=== PATIENT | male | born 1970 | race Caucasian/White ===

== ENCOUNTER 2019-11-09 11:54 | Inpatient (IN) | payer OTHER ==
--- NOTE | 2019-11-09 14:29 | BHS.RME ---
Substance Use & Tx History - Substance Use History Opiates (Heroin) Substance amount: 10 bags Frequency of use: Daily Substance route: Injection (ex: intravenous or skin popping) Date of Last Use: 11/08/19 Alcohol Substance amount: 2pints od bacardi/2 of 40 ozs of beer Frequency of use: Daily Substance route: Oral Date of Last Use: 11/07/19 - Last Treatment Date of last treatment: 2014 Where was last treatment: Detox ([facility]) Physical/Psych/Mental Status - Behavior General Behavior: Increased activity (restlessness, agitation) Eye Contact: Normal - Cooperativeness Cooperativeness: Cooperative - Thinking Thought Processes: Logical Thought content: Future oriented - Physical Health Problems Is patient presently having any pain?: No Does patient presently have any injuries (include location): Yes (head and laceration on eyebrow,seen in [facility]) Does patient currently have a fever: No COWS - Scale Resting Pulse: 0= [place] 80 or Below (this 49 years old male with heroin dependence, use to drink, had seizure an d syncope seen at [facility],did not see discharge paper, [facility] [place] with stitches need detox drink occasionally) Sweatin= Chills/Flushing Restless Observation: 1= Difficult to Sit Still Pupil Size: 1= Pupils >than Normal Bone or Joint Aches: 2= Severe Diffuse Aches Runny Nose/ Eye Tearin= Nasal Congestion GI Upset > 30mins: 2= Nausea/Diarrhea Tremor Observation: 2= Slight Tremor Visible Yawning Observation: 1= 1-2x During Session Anxiety or Irritability: 2=Irritable/Anxious Goose Flesh Skin: 0=Smooth Skin COWS Score: 13
[2019-11-09 17:13] VITALS: BMI 30.9
--- NOTE | 2019-11-09 17:36 | HP ---
COWS - Scale Resting Pulse: 0= [place] 80 or Below (this 49 years old male with heroin dependence, use to drink, had seizure an d syncope seen at [facility],did not see discharge paper, [facility] need detox drink occasionally) Sweatin= Chills/Flushing Restless Observation: 1= Difficult to Sit Still Pupil Size: 1= Pupils >than Normal Bone or Joint Aches: 2= Severe Diffuse Aches Runny Nose/ Eye Tearin= Nasal Congestion GI Upset > 30mins: 2= Nausea/Diarrhea Tremor Observation: 2= Slight Tremor Visible Yawning Observation: 1= 1-2x During Session Anxiety or Irritability: 2=Irritable/Anxious Goose Flesh Skin: 0=Smooth Skin COWS Score: 13 CIWA Score - Admission Criteria OASAS Guidelines: Admission for Medically Managed Detox: Requires at least one of the followin. CIWA greater than 12 2. Seizures within the past 24 hours 3. Delirium tremens within the past 24 hours 4. Hallucinations within the past 24 hours 5. Acute intervention needed for co occurring medical disorder 6. Acute intervention needed for co occurring psychiatric disorder 7. Severe withdrawal that cannot be handled at a lower level of care (continued vomiting, continued diarrhea, abnormal vital signs) requiring intravenous medication and/or fluids 8. Admitting History and Physical - Admission Chief Complaint: i need help to stop using heroin History of Present Illness: this 49 years old male with heroin dependence seeking detox,seen in [facility] last night ,o discharge paper,had head injury,laceration of left eyebrow History Source: Patient Limitations to Obtaining History: No Limitations - Past Medical History [employer]: Yes: Seizure, Syncope Psych: Yes: Addictions Additional Past Medical History: abrasion both legs - Past Surgical History Past Surgical History: Yes: None - Smoking History Smoking history: Current every day smoker Have you smoked in the past 12 months: Yes Aproximately how many cigarettes per day: 10 - Alcohol/Substance Use Hx Alcohol Use: No History of Substance Use: reports: Heroin - Social History Usual Living Arrangement: Yes: With Significant Other Occupation: unemployed History of Recent Travel: No Admission ROS BHS - HPI Chief Complaint: i need help to stop using heroin History of Present Illness: this 49 years old male with heroin dependence,alcohol abused,seeking help to stop using, head injury,seizure,syncope last night seen in [place] laceration of left eyebrow last detox 2014 not sure about facility longest sobriety 5 years nicotine dependence plan for out patient program after detox - Ebola screening Have you traveled outside of the country in the last 21 days: No Have you had contact with anyone from an Ebola affected area: No Have you been sick,other than usual withdrawal symptoms: No Do you have a fever: No - Review of Systems Constitutional: Chills, Night Sweats, Changes in sleep EENT: reports: Tearing, Nose Congestion, Other (laceration of left eyebrow with stitches) Respiratory: reports: No Symptoms reported Cardiac: reports: No Symptoms Reported GI: reports: Nausea, Poor Appetite, Abdominal cramping : reports: No Symptoms Reported Musculoskeletal: reports: Back Pain, Joint Pain, Muscle Pain Integumentary: reports: Dryness, Other (laceration of left eybrow with stitches) Neuro: reports: Headache Endocrine: reports: No Symptoms Reported Hematology: reports: No Symptoms Reported Psychiatric: reports: No Sypmtoms Reported Other Systems: Reviewed and Negative Patient History - Patient Medical History Hx Anemia: No Hx Asthma: No Hx Chronic Obstructive Pulmonary Disease (COPD): No Hx Cancer: No Hx Cardiac Disorders: No Hx Congestive Heart Failure: No Hx Hypertension: No Hx Hypercholesterolemia: No Hx Pacemaker: No HX Cerebrovascular Accident: No Hx Seizures: Yes (last 01/07/2020) Hx Dementia: No Hx Diabetes: No Hx Gastrointestinal Disorders: No Hx Liver Disease: No Hx Genitourinary Disorders: No Hx Sexually Transmitted Disorders: No Hx Renal Disease (ESRD): No Hx Thyroid Disease: No Hx Human Immunodeficiency Virus (HIV): No (2009 negative) Hx Hepatitis C: No Hx Depression: No Hx Suicide Attempt: No Hx Bipolar Disorder: No Hx Schizophrenia: No Other Medical History: no suicidal,no homicidal - Patient Surgical History Past Surgical History: No - PPD History Previous Implant?: Yes Documented Results: Negative w/o proof Implanted On Prior [facility] Admission?: No PPD to be Administered?: Yes - Smoking Cessation Smoking history: Current every day smoker Have you smoked in the past 12 months: Yes Aproximately how many cigarettes per day: 10 Cigars Per Day: 0 Hx Chewing Tobacco Use: No Initiated information on smoking cessation: Yes 'Breaking Loose' booklet given: 11/09/19 - Substance & Tx. History Hx Alcohol Use: No Hx Substance Use: Yes Substance Use Type: Heroin Hx Substance Use Treatment: Yes (2015 unknown facility) - Substances abused Heroin Substance route: Injection Frequency: Daily Amount used: 10 bags Age of first use: 35 Date of last use: 11/08/19 Admission Physical Exam [facility] - Vital Signs Vital Signs: Vital Signs - 24 hr 11/09/19 17:10 Temperature 97 F L Pulse Rate 58 L Respiratory 16 Rate Blood Pressure 131/77 - Physical General Appearance: Yes: Moderate Distress, Tremorous, Irritable, Sweating, Anxious HEENTM: Yes: Normal ENT Inspection, Normocephalic, ARACELY, Pharynx Normal, Other ( laceration of eyebrow with stitches) Respiratory: Yes: Lungs Clear, Normal Breath Sounds, No Respiratory Distress Neck: Yes: Within Normal Limits, Supple, Trachea in good position Breast: Yes: Within Normal Limits Cardiology: Yes: Within Normal Limits, Regular Rhythm, Regular Rate, S1, S2 Abdominal: Yes: Normal Bowel Sounds, Non Tender, Soft Genitourinary: Yes: Within Normal Limits Back: Yes: Normal Inspection Musculoskeletal: Yes: full range of Motion, Back pain, Muscle Pain Extremities: Yes: Tremors Neurological: Yes: performance improvement director II-XII NML intact, Fully Oriented, Alert, Motor Strength 5/5 Integumentary: Yes: Dry Lymphatic: Yes: Within Normal Limits - Diagnostic (1) Opioid dependence with withdrawal Current Visit: Yes Status: Acute (2) Seizure Current Visit: Yes Status: Acute (3) Syncope Current Visit: Yes Status: Acute (4) History of head injury Current Visit: Yes Status: Acute (5) Laceration of eyebrow, left Current Visit: Yes Status: Acute (6) IVDU (intravenous drug user) Current Visit: Yes Status: Acute (7) Abrasion of anterior left lower leg Current Visit: Yes Status: Acute (8) Abrasion of anterior right lower leg Current Visit: Yes Status: Acute Cleared for Admission [facility] - Detox or Rehab [facility] Level of Care: Medically Managed Detox Regimen/Protocol: Methadone Breathalyzer - Breathalyzer Breathalyzer: 0 Urine Drug Screen - Test Device Lot number: [id number] Expiration date: 08/19/21 - Control Is test valid?: Yes - Results Drug screen NEGATIVE: No Urine drug screen results: FEN-Fentanyl, MOP-Opiates Inpatient Rehab Admission - Rehab Decision to Admit Inpatient rehab admission?: No
[2019-11-09] MEDS ORDERED: NICOTINE POLACRILEX 2 MG GUM BUC PRN (17:49)
[2019-11-09] MEDS ORDERED: MENTHOL/PHENOL 1 EACH UD MM PRN (17:49)
[2019-11-09] MEDS ORDERED: MAG HYDROX/AL HYDROX/SIMETH 30 ML UNIT-DOSE CUP PO PRN (17:49)
[2019-11-09] MEDS ORDERED: MAGNESIUM HYDROX 2400MG/30ML ORAL SUSPENSION 30 ML CUP PO PRN (17:49)
[2019-11-09] MEDS ORDERED: ACETAMINOPHEN 325 MG TABLET (FP) PO PRN ×2 (17:49)
[2019-11-09] MEDS ORDERED: BISMUTH SUBSALICYLATE 524 MG/30 ML UD PO PRN (17:49)
[2019-11-09] MEDS ORDERED: hydrOXYzine PAMOATE 25 MG CAPSULE (FP) PO PRN (17:49)
[2019-11-09] MEDS ORDERED: MAGNESIUM CITRATE 300 ML BOTTLE PO PRN (17:49)
[2019-11-09] MEDS ORDERED: cloNIDine HCL 0.1 MG TABLET PO PRN (17:49)
[2019-11-09] MEDS ORDERED: METHADONE HCL 10 MG TABLET (FOR DETOX USE ONLY) PO ONE (17:49)
--- NOTE | 2019-11-09 18:42 | PN ---
BHS Progress Note Note: addendum patient has perforated appendicitis at age of [age] years old,with midline abdominal scar,
[2019-11-09] MEDS: diazePAM 5 MG TABLET PO PRN (19:25)
[2019-11-09] MEDS: NICOTINE 21 MG/24 HOURS TOPICAL PATCH TD SCH (19:58)
[2019-11-09] MEDS: THIAMINE HCL 100 MG TABLET (FP) PO SCH (22:34)
[2019-11-09] MEDS: BACITRACIN 0.9 GM PACKET TP SCH (22:34)
[2019-11-10] MEDS ORDERED: METHADONE HCL 10 MG TABLET (FOR DETOX USE ONLY) ONE (09:58)
[2019-11-10] MEDS ORDERED: METHADONE HCL 5 MG TABLET (FOR DETOX USE ONLY) ONE (09:58)
[2019-11-10] MEDS ORDERED: METHADONE (DETOX) 20 MG, METHADONE (DETOX) 5 MG PO ONE (10:00)
[2019-11-10] MEDS: BACITRACIN 0.9 GM PACKET TP SCH ×2 (11:03→22:33)
[2019-11-10] MEDS: PRENATAL VITAMINS W/ FOLIC ACID TABLET (FP) PO SCH (11:03)
[2019-11-10] MEDS: NICOTINE 21 MG/24 HOURS TOPICAL PATCH TD SCH (11:11)
[2019-11-10 11:46] LABS: ALBUMIN 3.6 g/dl (3.4-5.0); BILIRUBIN,TOTAL 0.6 mg/dL (0.2-1); BLOOD UREA NITROGEN 6.8 mg/dL (7-18); CALCIUM 8.9 mg/dL (8.5-10.1); CREATININE 0.7 mg/dL (0.55-1.3); POTASSIUM 4.1 mmol/L (3.5-5.1); TOT PROT 7.7 g/dl (6.4-8.2)
[2019-11-10 11:51] LABS: HEMATOCRIT 40.6 % (35.4-49); HEMOGLOBIN 13.5 GM/dL (11.7-16.9); MCH 29.8 pg (25.7-33.7); MCHC 33.4 g/dl (32.0-35.9); MEAN CELL VOLUME 89.4 fl (80-96); MEAN PLT VOLUME 11.2 fl (7.5-11.1); PLATELET COUNT 240 K/MM3 (134-434); RBC 4.54 M/mm3 (4.00-5.60); RDW 16.2 % (11.9-15.9); WHITE BLOOD COUNT 12.3 K/mm3 (4.0-10.0)
--- NOTE | 2019-11-10 14:18 | PN ---
BHS COWS - Scale Resting Pulse: 0= [place] 80 or Below Sweatin= Chills/Flushing Restless Observation: 1= Difficult to Sit Still Pupil Size: 0= Normal to Room Light Bone or Joint Aches: 2= Severe Diffuse Aches Runny Nose/ Eye Tearin= None GI Upset > 30mins: 2= Nausea/Diarrhea Tremor Observation of Outstretched Hands: 2= Slight Tremor Visible Yawning Observation: 0= None Anxiety or Irritability: 2=Irritable/Anxious Goose Flesh Skin: 0=Smooth Skin COWS Score: 10 BHS Progress Note (SOAP) Subjective: Patient admitted for opiod withdrawal sx. Received in bed, mild shakes visible, with chills, anxious and restless. Objective: 11/10/19 14:19 Vital Signs Temperature 98.8 F 11/10/19 12:24 Pulse Rate 67 11/10/19 12:24 Respiratory Rate 18 11/10/19 12:24 Blood Pressure 135/67 11/10/19 12:24 O2 Sat by Pulse Oximetry (%) Laboratory Tests 11/10/19 11/10/19 07:25 07:25 WBC 12.3 H RBC 4.54 Hgb 13.5 Hct 40.6 MCV 89.4 MCH 29.8 MCHC 33.4 RDW 16.2 H Plt Count 240 MPV 11.2 H Sodium 139 Potassium 4.1 Chloride 105 Carbon Dioxide 28 Anion Gap 7 L BUN 6.8 L Creatinine 0.7 Est GFR (CKD-EPI)AfAm 128.43 Est GFR (CKD-EPI)NonAf 110.81 Random Glucose 110 H Calcium 8.9 Total Bilirubin 0.6 AST 30 ALT 19 Alkaline Phosphatase 75 Total Protein 7.7 Albumin 3.6 PE alert and oriented x 3 skin warm, moist +perrla, eoms intact bl gi nt, nd ext full rom, mild tremors visible anxious/restless Assessment: 11/10/19 14:23 Opiod withdrawal sx elevated wbc Plan: Continue detox encourage oral fluids repeat cbc in am
[2019-11-10] MEDS: METHOCARBAMOL 500 MG TABLET PO PRN (17:09)
[2019-11-10] MEDS: THIAMINE HCL 100 MG TABLET (FP) PO SCH (22:33)
[2019-11-11] MEDS: diazePAM 5 MG TABLET PO PRN ×3 (08:44→20:07)
[2019-11-11] MEDS ORDERED: METHADONE HCL 10 MG TABLET (FOR DETOX USE ONLY) PO ONE (10:00)
--- NOTE | 2019-11-11 10:30 | EKG ---
Test Reason : Blood Pressure : / mmHG Vent. Rate : 055 BPM Atrial Rate : 055 BPM P-R Int : 164 ms QRS Dur : 096 ms QT Int : 480 ms P-R-T Axes : 086 073 062 degrees QTc Int : 459 ms SINUS BRADYCARDIA OTHERWISE NORMAL ECG NO PREVIOUS ECGS AVAILABLE Confirmed by Kiera Armijo ([id number]) on 11/11/2019 10:29:41 AM Referred By: MIRA BROWN Confirmed By:Kiera Armijo
[2019-11-11] MEDS: BACITRACIN 0.9 GM PACKET TP SCH ×2 (10:41→22:03)
[2019-11-11] MEDS: NICOTINE 21 MG/24 HOURS TOPICAL PATCH TD SCH (10:41)
[2019-11-11] MEDS: PRENATAL VITAMINS W/ FOLIC ACID TABLET (FP) PO SCH (10:41)
[2019-11-11 10:59] LABS: BASO % 0.6 % (0-2.0); EOS % 0.8 % (0-4.5); HEMATOCRIT 42.7 % (35.4-49); MCH 29.1 pg (25.7-33.7); MCHC 32.7 g/dl (32.0-35.9); MEAN CELL VOLUME 88.9 fl (80-96); MEAN PLT VOLUME 11.6 fl (7.5-11.1); MONO % 15.1 % (3.8-10.2); NEUT % 52.5 % (42.8-82.8); PLATELET COUNT 249 K/MM3 (134-434); RBC 4.81 M/mm3 (4.00-5.60); RDW 16.3 % (11.9-15.9); WHITE BLOOD COUNT 13.6 K/mm3 (4.0-10.0)
[2019-11-11 13:35] LABS: PLATELET ESTIMATE NORMAL
[2019-11-11] MEDS: METHOCARBAMOL 500 MG TABLET PO PRN ×2 (13:51→20:07)
--- NOTE | 2019-11-11 15:07 | PN ---
BHS COWS - Scale Resting Pulse: 0= [place] 80 or Below Sweatin= No chills or Flushing Restless Observation: 1= Difficult to Sit Still Pupil Size: 1= Pupils >than Normal Bone or Joint Aches: 2= Severe Diffuse Aches Runny Nose/ Eye Tearin= Runny Nose/Eyes GI Upset > 30mins: 1= Stomach Cramp Tremor Observation of Outstretched Hands: 2= Slight Tremor Visible Yawning Observation: 1= 1-2x During Session Anxiety or Irritability: 2=Irritable/Anxious Goose Flesh Skin: 0=Smooth Skin COWS Score: 12 S Progress Note (SOAP) Subjective: alert,irritable,anxious,interrupted sleep,pain in the body,and back erythema over the site of track ady left eyebrow with stitches Objective: 11/11/19 15:05 Vital Signs Temperature 98.1 F 11/11/19 14:39 Pulse Rate 56 L 11/11/19 14:39 Respiratory Rate 20 11/11/19 14:39 Blood Pressure 123/75 11/11/19 14:39 O2 Sat by Pulse Oximetry (%) Laboratory Results - last 24 hr 11/11/19 07:30 WBC 13.6 H RBC 4.81 Hgb 14.0 Hct 42.7 MCV 88.9 MCH 29.1 MCHC 32.7 RDW 16.3 H Plt Count 249 MPV 11.6 H Absolute Neuts (auto) 7.1 Neutrophils % 52.5 Lymphocytes % 31.0 Monocytes % 15.1 H Eosinophils % 0.8 Basophils % 0.6 Nucleated RBC % 0 Platelet Estimate Normal cellulitis Assessment: 11/11/19 15:06 withdrawal symptom Plan: continue detox methadone regimen,keflex 500 mgs po q 6hrs for 7 days for cellulitis
[2019-11-11] MEDS: IBUPROFEN 400 MG TABLET (FP) PO PRN (18:02)
[2019-11-11] MEDS: CEPHALEXIN MONOHYDRATE 500 MG CAPSULE (UD) PO SCH ×2 (18:03→23:02)
[2019-11-11] MEDS: THIAMINE HCL 100 MG TABLET (FP) PO SCH (22:03)
[2019-11-11] MEDS: MELATONIN 5 MG TABLETS PO PRN (22:03)
[2019-11-12] MEDS: diazePAM 5 MG TABLET PO PRN ×4 (02:58→22:15)
[2019-11-12] MEDS: METHOCARBAMOL 500 MG TABLET PO PRN (02:58)
[2019-11-12] MEDS: CEPHALEXIN MONOHYDRATE 500 MG CAPSULE (UD) PO SCH ×4 (05:40→23:59)
[2019-11-12] MEDS ORDERED: METHADONE HCL 10 MG TABLET (FOR DETOX USE ONLY) ONE (09:08)
[2019-11-12] MEDS ORDERED: METHADONE HCL 5 MG TABLET (FOR DETOX USE ONLY) ONE (09:08)
[2019-11-12] MEDS ORDERED: cloNIDine HCL 0.1 MG TABLET PO PRN (09:16)
--- NOTE | 2019-11-12 09:19 | PN ---
BHS COWS - Scale Resting Pulse: 1= [place] 81-100 Sweatin= Chills/Flushing Restless Observation: 3= Extraneous Movement Pupil Size: 1= Pupils >than Normal Bone or Joint Aches: 1= Mild Discomfort Runny Nose/ Eye Tearin= Nasal Congestion GI Upset > 30mins: 2= Nausea/Diarrhea Tremor Observation of Outstretched Hands: 1= Tremor [place], Not Seen Yawning Observation: 1= 1-2x During Session Anxiety or Irritability: 2=Irritable/Anxious Goose Flesh Skin: 0=Smooth Skin COWS Score: 14 S Progress Note (SOAP) Subjective: pt states he feels like he is in withdrawal, the detox meth dose is not controlling Sx. O: Vital Signs - 24 hr 11/11/19 11/11/19 11/12/19 14:39 20:12 00:09 Temperature 98.1 F 97.2 F L Pulse Rate 56 L 59 L Respiratory 20 18 18 Rate Blood Pressure 123/75 132/92 11/12/19 11/12/19 11/12/19 03:38 05:42 06:40 Temperature 97.7 F Pulse Rate 60 Respiratory 18 18 18 Rate Blood Pressure 126/99 Laboratory Tests 11/10/19 11/10/19 11/10/19 07:25 07:25 07:25 WBC 12.3 H RBC 4.54 Hgb 13.5 Hct 40.6 MCV 89.4 MCH 29.8 MCHC 33.4 RDW 16.2 H Plt Count 240 MPV 11.2 H Absolute Neuts (auto) Neutrophils % Lymphocytes % Monocytes % Eosinophils % Basophils % Nucleated RBC % Platelet Estimate Sodium 139 Potassium 4.1 Chloride 105 Carbon Dioxide 28 Anion Gap 7 L BUN 6.8 L Creatinine 0.7 Est GFR (CKD-EPI)AfAm 128.43 Est GFR (CKD-EPI)NonAf 110.81 Random Glucose 110 H Calcium 8.9 Total Bilirubin 0.6 AST 30 ALT 19 Alkaline Phosphatase 75 Total Protein 7.7 Albumin 3.6 RPR Titer Nonreactive 11/11/19 07:30 WBC 13.6 H RBC 4.81 Hgb 14.0 Hct 42.7 MCV 88.9 MCH 29.1 MCHC 32.7 RDW 16.3 H Plt Count 249 MPV 11.6 H Absolute Neuts (auto) 7.1 Neutrophils % 52.5 Lymphocytes % 31.0 Monocytes % 15.1 H Eosinophils % 0.8 Basophils % 0.6 Nucleated RBC % 0 Platelet Estimate Normal Sodium Potassium Chloride Carbon Dioxide Anion Gap BUN Creatinine Est GFR (CKD-EPI)AfAm Est GFR (CKD-EPI)NonAf Random Glucose Calcium Total Bilirubin AST ALT Alkaline Phosphatase Total Protein Albumin RPR Titer a/p: OUD- continue detox protocol, d/w pt the prn meds available: clonidine/ vistaril/valium for Sx control d/w pt at length re MAT- suboxone, subutex/methadone
[2019-11-12] MEDS ORDERED: METHADONE (DETOX) 10 MG, METHADONE (DETOX) 5 MG PO ONE (10:00)
[2019-11-12] MEDS: NICOTINE 21 MG/24 HOURS TOPICAL PATCH TD SCH (10:29)
[2019-11-12] MEDS: PRENATAL VITAMINS W/ FOLIC ACID TABLET (FP) PO SCH (10:29)
[2019-11-12] MEDS: BACITRACIN 0.9 GM PACKET TP SCH ×2 (10:39→22:13)
[2019-11-12] MEDS: IBUPROFEN 400 MG TABLET (FP) PO PRN (17:44)
[2019-11-12] MEDS: MELATONIN 5 MG TABLETS PO PRN (22:14)
[2019-11-12] MEDS: THIAMINE HCL 100 MG TABLET (FP) PO SCH (22:14)
[2019-11-13] MEDS: hydrOXYzine PAMOATE 25 MG CAPSULE (FP) PO PRN ×3 (01:21→22:38)
[2019-11-13] MEDS: CEPHALEXIN MONOHYDRATE 500 MG CAPSULE (UD) PO SCH ×3 (05:58→18:31)
[2019-11-13] MEDS: diazePAM 5 MG TABLET PO PRN (06:00)
[2019-11-13] MEDS ORDERED: METHADONE HCL 10 MG TABLET (FOR DETOX USE ONLY) PO ONE (10:00)
[2019-11-13] MEDS: PRENATAL VITAMINS W/ FOLIC ACID TABLET (FP) PO SCH (10:51)
[2019-11-13] MEDS: NICOTINE 21 MG/24 HOURS TOPICAL PATCH TD SCH (10:51)
[2019-11-13] MEDS: BACITRACIN 0.9 GM PACKET TP SCH ×2 (10:53→23:06)
--- NOTE | 2019-11-13 15:12 | PN ---
BHS COWS - Scale Resting Pulse: 0= [place] 80 or Below Sweatin= Chills/Flushing Restless Observation: 1= Difficult to Sit Still Pupil Size: 1= Pupils >than Normal Bone or Joint Aches: 1= Mild Discomfort Runny Nose/ Eye Tearin= Nasal Congestion GI Upset > 30mins: 2= Nausea/Diarrhea Tremor Observation of Outstretched Hands: 0= None Yawning Observation: 0= None Anxiety or Irritability: 1=Feels Anxious/Irritable Goose Flesh Skin: 0=Smooth Skin COWS Score: 8 BHS Progress Note (SOAP) Subjective: interrupted sleep, sweats, diarrhea Objective: 11/13/19 15:11 Laboratory Tests 11/10/19 11/10/19 11/10/19 07:25 07:25 07:25 WBC 12.3 H RBC 4.54 Hgb 13.5 Hct 40.6 MCV 89.4 MCH 29.8 MCHC 33.4 RDW 16.2 H Plt Count 240 MPV 11.2 H Absolute Neuts (auto) Neutrophils % Lymphocytes % Monocytes % Eosinophils % Basophils % Nucleated RBC % Platelet Estimate Sodium 139 Potassium 4.1 Chloride 105 Carbon Dioxide 28 Anion Gap 7 L BUN 6.8 L Creatinine 0.7 Est GFR (CKD-EPI)AfAm 128.43 Est GFR (CKD-EPI)NonAf 110.81 Random Glucose 110 H Calcium 8.9 Total Bilirubin 0.6 AST 30 ALT 19 Alkaline Phosphatase 75 Total Protein 7.7 Albumin 3.6 RPR Titer Nonreactive 11/11/19 07:30 WBC 13.6 H RBC 4.81 Hgb 14.0 Hct 42.7 MCV 88.9 MCH 29.1 MCHC 32.7 RDW 16.3 H Plt Count 249 MPV 11.6 H Absolute Neuts (auto) 7.1 Neutrophils % 52.5 Lymphocytes % 31.0 Monocytes % 15.1 H Eosinophils % 0.8 Basophils % 0.6 Nucleated RBC % 0 Platelet Estimate Normal Sodium Potassium Chloride Carbon Dioxide Anion Gap BUN Creatinine Est GFR (CKD-EPI)AfAm Est GFR (CKD-EPI)NonAf Random Glucose Calcium Total Bilirubin AST ALT Alkaline Phosphatase Total Protein Albumin RPR Titer Assessment: 11/13/19 15:14 withdrawal sx's elevated wbc - pt is afebrile , no cough, sob, tachycardia 11/13/19 15:16 Plan: cont. detox increase fluids peptobismol prn d/c in am
[2019-11-13] MEDS: METHOCARBAMOL 500 MG TABLET PO PRN (18:34)
[2019-11-13] MEDS: MELATONIN 5 MG TABLETS PO PRN (22:37)
[2019-11-13] MEDS: THIAMINE HCL 100 MG TABLET (FP) PO SCH (23:06)
[2019-11-14] MEDS: CEPHALEXIN MONOHYDRATE 500 MG CAPSULE (UD) PO SCH ×2 (00:50→06:41)
[2019-11-14] MEDS ORDERED: METHADONE HCL 5 MG TABLET (FOR DETOX USE ONLY) PO ONE (06:00)
[2019-11-14] MEDS: METHOCARBAMOL 500 MG TABLET PO PRN (06:54)
[2019-11-14] MEDS: NICOTINE 21 MG/24 HOURS TOPICAL PATCH TD SCH (10:47)
[2019-11-14] MEDS: BACITRACIN 0.9 GM PACKET TP SCH (10:47)
[2019-11-14] MEDS: PRENATAL VITAMINS W/ FOLIC ACID TABLET (FP) PO SCH (10:47)
[2019-11-14 10:57] VITALS: BP 122/74; PULSE 67; TEMP 97.3
--- NOTE | 2019-11-14 12:27 | DS ---
[facility] Detox Discharge Summary Admission Date: 11/09/19 Discharge Date: 11/14/19 - History Present History: Opioid Dependence Pertinent Past History: Pt completed detox protocol for opioid use. I had d/w pt long term care pharmacist Rx with MAT suboxone/methadone Vital Signs - 24 hr 11/13/19 11/13/19 11/14/19 16:26 20:58 00:31 Temperature 97.6 F 98.1 F Pulse Rate 63 76 Respiratory 18 18 18 Rate Blood Pressure 144/71 139/99 11/14/19 11/14/19 11/14/19 03:20 06:19 08:34 Temperature 97.9 F 97.3 F L Pulse Rate 54 L 67 Respiratory 18 18 18 Rate Blood Pressure 118/74 122/74 Laboratory Tests 11/10/19 11/10/19 11/10/19 07:25 07:25 07:25 WBC 12.3 H RBC 4.54 Hgb 13.5 Hct 40.6 MCV 89.4 MCH 29.8 MCHC 33.4 RDW 16.2 H Plt Count 240 MPV 11.2 H Absolute Neuts (auto) Neutrophils % Lymphocytes % Monocytes % Eosinophils % Basophils % Nucleated RBC % Platelet Estimate Sodium 139 Potassium 4.1 Chloride 105 Carbon Dioxide 28 Anion Gap 7 L BUN 6.8 L Creatinine 0.7 Est GFR (CKD-EPI)AfAm 128.43 Est GFR (CKD-EPI)NonAf 110.81 Random Glucose 110 H Calcium 8.9 Total Bilirubin 0.6 AST 30 ALT 19 Alkaline Phosphatase 75 Total Protein 7.7 Albumin 3.6 RPR Titer Nonreactive 11/11/19 07:30 WBC 13.6 H RBC 4.81 Hgb 14.0 Hct 42.7 MCV 88.9 MCH 29.1 MCHC 32.7 RDW 16.3 H Plt Count 249 MPV 11.6 H Absolute Neuts (auto) 7.1 Neutrophils % 52.5 Lymphocytes % 31.0 Monocytes % 15.1 H Eosinophils % 0.8 Basophils % 0.6 Nucleated RBC % 0 Platelet Estimate Normal Sodium Potassium Chloride Carbon Dioxide Anion Gap BUN Creatinine Est GFR (CKD-EPI)AfAm Est GFR (CKD-EPI)NonAf Random Glucose Calcium Total Bilirubin AST ALT Alkaline Phosphatase Total Protein Albumin RPR Titer - Physical Exam Results Vital Signs: Vital Signs Temperature 97.3 F L 11/14/19 08:34 Pulse Rate 67 11/14/19 08:34 Respiratory Rate 18 11/14/19 08:34 Blood Pressure 122/74 11/14/19 08:34 O2 Sat by Pulse Oximetry (%) - Treatment Hospital Course: Detox Protocol Followed, Detoxed Safely, Responded well, Discharged Condition Good - Medication Discharge Medications: Ambulatory Orders NK [No Known Home Medication] 11/09/19 - Diagnosis (1) IVDU (intravenous drug user) Status: Acute (2) Opioid dependence with withdrawal Status: Acute - AMA Did Patient Leave Against Medical Advice: No
== END 2019-11-14 09:34 | disposition home or self-care (01) | DRG 897 ==
LOC: YASAS 11:54 → Y6N 18:09
PROVIDERS: ADMIT Allergy & Immunology; ATTEND Allergy & Immunology
PROC: HZ2ZZZZ Detoxification Services for Substance Abuse Treatment (ICD-10-PCS; principal; 2019-11-09)
DX: F11.23 Opioid dependence with withdrawal (principal); F10.230 Alcohol dependence with withdrawal, uncomplicated; F17.210 Nicotine dependence, cigarettes, uncomplicated; G40.909 Epilepsy, unspecified, not intractable, without status epilepticus; D72.829 Elevated white blood cell count, unspecified
CPT/HCPCS: 36415; 80053; 85025; 85027; 86593; 93005; 93010

== ENCOUNTER 2020-07-02 16:31 | Inpatient (IN) | payer OTHER ==
--- OUTSIDE RECORDS SUMMARY | 2020-07-02 16:36 | XMS ---
:1970 [facility] Care Team Providers Name Role Phone Dinorah WOODWARD MD Unavailable Unavailable Dinorah WOODWARD MD Unavailable Unavailable Dinorah WOODWARD MD Unavailable Unavailable Dinorah WOODWARD MD Unavailable Unavailable Dinorah WOODWARD MD Unavailable Unavailable Dinorah WOODWARD MD Unavailable Unavailable Dinorah WOODWARD MD Unavailable Unavailable Dinorah WOODWARD MD Unavailable Unavailable Dinorah WOODWARD MD Unavailable Unavailable Dinorah WOODWARD MD Unavailable Unavailable Dinorah WOODWARD MD Unavailable Unavailable Dinorah WOODWARD MD Unavailable Unavailable HillEfren MD Unavailable Unavailable Hill, A Unavailable Unavailable Hill, A Unavailable Unavailable Cedrick, A Unavailable Unavailable MD Андрей Unavailable Unavailable MD Андрей Unavailable Unavailable MD Андрей Unavailable Unavailable MD Андрей Unavailable Unavailable MD Андрей Unavailable Unavailable Re-disclosure Warning The records that you are about to access may contain information from federally- assisted alcohol or drug abuse programs. If such information is present, then the following federally mandated warning applies: This information has been disclosed to you from records protected by federal confidentiality rules (42 CFR part 2). The federal rules prohibit you from making any further disclosure of this information unless further disclosure is expressly permitted by the written consent of the person to whom it pertains or as otherwise permitted by 42 CFR part 2. A general authorization for the release of medical or other information is NOT sufficient for this purpose. The Federal rules restrict any use of the information to criminally investigate or prosecute any alcohol or drug abuse patient.The records that you are about to access may contain highly sensitive health information, the redisclosure of which is protected by Article 27-F of the [facility] Public Health law. If you continue you may haveaccess to information: Regarding HIV / AIDS; Provided by facilities licensed or operated by the [facility] Office of Mental Health; or Provided by the [facility] Office for People With Developmental Disabilities. If such information is present, then the following [facility] mandated warning applies: This information has been disclosed to you from confidential records which are protected by state law. State law prohibits you from making any further disclosure of this information without the specific written consent of the person to whom it pertains, or as otherwise permitted by law. Any unauthorized further disclosure in violation of state law may result in a fine or fci sentence or both. A general authorization for the release of medical or other information is NOT sufficient authorization for further disclosure. Encounters Encounter Providers Location Date Indications Data Source(s ) Emergency Attender: Gokul Philip ICU-EMERG 05/08/2019 ABSCESS JORDI Vieyra MD 02:15:00 PM Hospital EDT - 05/08/2019 03:19:00 PM EDT ABSCESS Patient discharged. Emergency Attender: AUSTIN ICU-EMERG 04/06/2019 INABILITY TO JORDI WOODWARD MDAttender: 04:37:00 PM EDT SWALLOW/TALK R maik Chiang MD - 04/07/2019 Hospital 01:33:00 AM EDT INABILITY TO SWALLOW/TALK Medications Medication Brand Start Product Dose Route Administrative Pharmacy [facility] Indications Reaction Description Data Name Date Form Instructions Instructions Source(s) Naproxen naprox 05/08/ TABLET 1 ORAL complet [facility] 500 MG Oral en 500 2018 {tab( ed Healt h Tablet mg 03:00: s)} System naproxen oral 25 PM 500 mg oral tablet EDT tablet Check with your doctor before becoming p regnant.May cause drowsiness or dizziness.Obtain medical advice before t aking any non-prescription drugs as some may affect the action of this medication.Júnior e with food or milk. Sulfamethoxazole Bactrim 05/08/2019 TABLET 1 ORAL completed [facility] 800 MG / DS 800 03:00:04 PM {tab(s)} Health Trimethoprim 160 mg-160 mg EDT System MG Oral Tablet oral [Bactrim] Bactrim tablet DS 800 mg-160 mg oral tablet Avoid prolonged or excessive exposure to direct and/or artificial sunlight while taking this medication.Finish all this m edication unless otherwise directed by prescriber.Medication should be taken wi th plenty of water. Cephalexin Keflex 05/08/2019 CAPSULE 1 {cap(s)} ORAL completed [facility] 500 MG Oral 500 mg 02:58:55 PM Health Capsule oral EDT System [Keflex] capsule Keflex 500 mg oral capsule Finish all this medication unless otherw ise directed by prescriber. Insurance Providers Payer name Policy type Policy ID Covered Covered green party's Policy P love / Coverage green party ID relationship to [facility] ormation type augustine HEALTH FIRST [id number] SP [id number] MEDICARE PONCHO MEDICARE [id number] SP [id number] MEDICARE [id number] SP [id number] F10 HEALTH FIRST [id number] SP [id number] MEDICARE SELF PAY SP INSURANCE Medicare Part Medicare [id number] 1 [id number] B Outpatient [facility] Medicaid [id number] 1 [id number] Medicaid 4013 [id number] S [id number] 2W Regular Clinic Visit Problems, Conditions, and Diagnoses Code Display Name Description Problem Type Effective Dates Data Source(s) L02.414 Cutaneous Cutaneous abscess Diagnosis 05/08/2019 [facility] - N ew abscess of left of left upper 02:15:00 PM EDT [facility] extremity Hospital ABSCESS ABSCESS Diagnosis 05/08/2019 [facility] - New 02:15:00 PM EDT [facility] Results ID Date Data Source [id number] 02/26/2020 07:00:00 AM EDT [facility] Name Value Range Interpretation Description Data Sup porting Code Source(s) Document(s ) SARS [facility] CORONAVIRUS 2 RNA This lab was ordered by [facility] ct Bill Inter and reported by [facility]. Procedure Vital Signs ID Date Data Source UNK Name Value Range Interpretation Code Description Data Source(s) Body surface area 2.2 m2 2.2 m2 [facility] Derived from [facility] m formula Body mass index 32 kg/m2 32 kg/m2 [facility] (BMI) [Ratio] [facility] Body weight 104.32 kg 104.32 kg [facility] Body height 180.34 cm 180.34 cm [facility] Body temperature 98.9 [degF] 0 - 200 Normal (applies to 98.9 [degF ] [facility] non-numeric results) [facility] Body temperature 37.1 Madhavi 0 - 99.9 Normal (applies to 37.1 Madhavi [facility] non-numeric results) [facility] Diastolic blood 90 mm[Hg] 0 - 999 Above high normal 90 mm[Hg] [facility] Systolic blood 132 mm[Hg] 0 - 999 Normal (applies to 132 mm[Hg] [facility] pressure non-numeric results) [facility] Deprecated Oxygen 97 % 0 - 999 Normal (applies to 97 % [facility] saturation in non-numeric results) H ealth System Capillary blood by Oximetry Respiratory rate 16 0 - 999 Normal (applies to 16 [facility] non-numeric results) [facility] Heart rate 72 0 - 999 Normal (applies to 72 [facility] non-numeric results) [facility] Patient Treatment Plan of Care Planned Activity Planned Date Details Description Data Source (s) Naproxen 500 MG Oral Tablet 05/08/2019 [facility] 03:00:25 PM EDT System Sulfamethoxazole 800 MG / 05/08/2019 [facility] Trimethoprim 160 MG Oral 03:00:04 PM EDT System Tablet [Bactrim] Cephalexin 500 MG Oral 05/08/2019 [facility] Capsule [Keflex] 02:58:55 PM EDT System
[2020-07-02 17:12] VITALS: BMI 33.5
--- NOTE | 2020-07-02 17:13 | BHS.RME ---
Substance Use & Tx History - Substance Use History Alcohol Substance amount: 2 quarts Frequency of use: Daily Substance route: Oral Heroin Substance amount: 1 b Frequency of use: Daily Substance route: Injection (ex: intravenous or skin popping) - Last Treatment Date of last treatment: February 2020 Where was last treatment: Detox Physical/Psych/Mental Status - Behavior General Behavior: Increased activity (restlessness, agitation) - Cooperativeness Cooperativeness: Cooperative - Thinking Thought Processes: Logical - Physical Health Problems Is patient presently having any pain?: Yes (left wrist frx 6 mo ago chronic pain ) Does patient presently have any injuries (include location): No Does patient currently have a fever: No COWS - Scale Resting Pulse: 1= DE 81-100 Sweatin=Flushed/Facial Moisture Restless Observation: 3= Extraneous Movement Pupil Size: 0= Normal to Room Light Bone or Joint Aches: 2= Severe Diffuse Aches Runny Nose/ Eye Tearin= Nasal Congestion GI Upset > 30mins: 1= Stomach Cramp Tremor Observation: 0= None Yawning Observation: 0= None Anxiety or Irritability: 2=Irritable/Anxious Goose Flesh Skin: 0=Smooth Skin COWS Score: 12 CIWA Nausea/Vomitin-No Nausea/No Vomiting Muscle Tremors: None Anxiety: 2 Agitation: 2 Paroxysmal Sweats: 2 Orientation: 0-Oriented Tacttile Disturbances: 0-None Auditory Disturbances: 0-None Visual Disturbances: 2-Mild Sensitivity Headache: 2-Mild CIWA-Ar Total Score: 10
--- NOTE | 2020-07-02 17:18 | HP ---
COWS - Scale Resting Pulse: 1= VT 81-100 Sweatin=Flushed/Facial Moisture Restless Observation: 3= Extraneous Movement Pupil Size: 0= Normal to Room Light Bone or Joint Aches: 2= Severe Diffuse Aches Runny Nose/ Eye Tearin= Nasal Congestion GI Upset > 30mins: 1= Stomach Cramp Tremor Observation: 0= None Yawning Observation: 0= None Anxiety or Irritability: 2=Irritable/Anxious Goose Flesh Skin: 0=Smooth Skin COWS Score: 12 CIWA Score Nausea/Vomitin-No Nausea/No Vomiting Muscle Tremors: None Anxiety: 2 Agitation: 2 Paroxysmal Sweats: 2 Orientation: 0-Oriented Tacttile Disturbances: 0-None Auditory Disturbances: 0-None Visual Disturbances: 2-Mild Sensitivity Headache: 2-Mild CIWA-Ar Total Score: 10 - Admission Criteria OASAS Guidelines: Admission for Medically Managed Detox: Requires at least one of the followin. CIWA greater than 12 2. Seizures within the past 24 hours 3. Delirium tremens within the past 24 hours 4. Hallucinations within the past 24 hours 5. Acute intervention needed for co occurring medical disorder 6. Acute intervention needed for co occurring psychiatric disorder 7. Severe withdrawal that cannot be handled at a lower level of care (continued vomiting, continued diarrhea, abnormal vital signs) requiring intravenous medication and/or fluids 8. 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 Psych: Yes: Addictions - Past Surgical History Past Surgical History: Yes: None - Smoking History Smoking history: Current every day smoker Have you smoked in the past 12 months: Yes Aproximately how many cigarettes per day: 4 - Alcohol/Substance Use Hx Alcohol Use: Yes History of Substance Use: reports: Heroin - Social History Occupation: unemployed History of Recent Travel: No Admission ROS [facility] Allergies/Adverse Reactions: Allergies Allergy/AdvReac Type Severity Reaction Status Date / Time No Known Allergies Allergy Verified 07/02/20 17:41 History of Present Illness: 49 y.o. male requesting detox from heroin and alcohol use . WAS IN THIS FACILITY IN FEBRUARY 2002, RELAPSED 1 MO AGO, CURRENT DAILY USE 1 BUNDLE HEROIN IV , 2 QUARTS LIQUOR . DENIES OD , DOES NOT HAVE NARCAN AT HOME . NEEDLES FROM THE EXCHANGE COCAINE 20 $ IV DENIES BLACKOUTS, SEIZURES ,ADMITS TO TREMORS . 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- PT HOSPITALIZED TOBACCO - 1/4 PPD , REQUESTING NRT W/ PATCH PMHX /PSHX ; UMBILICAL HERNIA, SPLENECTOMY 2/ TRAUMA 2002 PSYCH : DEPRESSION TX W/ WELLBUTRIN , XANAX , NEURONTIN DENIES SI/ HI Exam Limitations: Clinical Condition - Review of Systems Constitutional: No Symptoms Reported EENT: reports: No Symptoms Reported Respiratory: reports: Shortness of Breath (REPORTS WHEN HE HAS COLD SWEATS , AFTER SMOKING) Cardiac: reports: No Symptoms Reported GI: reports: Constipated, Abdominal cramping : reports: No Symptoms Reported Musculoskeletal: reports: See HPI, Joint Pain (LEFT WRIST), Muscle Pain Integumentary: reports: See HPI Neuro: reports: Headache Endocrine: reports: No Symptoms Reported Hematology: reports: No Symptoms Reported Psychiatric: reports: Orientated x3, Agitated, Anxious Patient History - Patient Medical History Hx Anemia: No Hx Asthma: No Hx Chronic Obstructive Pulmonary Disease (COPD): No Hx Cancer: No Hx Cardiac Disorders: No Hx Congestive Heart Failure: No Hx Hypertension: No Hx Hypercholesterolemia: No Hx Pacemaker: No HX Cerebrovascular Accident: No Hx Seizures: Yes (CHILDHOOD- NO MEDS) Hx Dementia: No Hx Diabetes: No Hx Gastrointestinal Disorders: No Hx Liver Disease: No Hx Genitourinary Disorders: No Hx Sexually Transmitted Disorders: No Hx Renal Disease (ESRD): No Hx Thyroid Disease: No Hx Human Immunodeficiency Virus (HIV): No (2009 negative) Hx Hepatitis C: No Hx Depression: Yes (WELLBURTRIN, NEURONTIN) Hx Suicide Attempt: No Hx Bipolar Disorder: Yes Hx Schizophrenia: No - Patient Surgical History Past Surgical History: No Hx Neurologic Surgery: No Hx Cataract Extraction: No Hx Cardiac Surgery: No Hx Lung Surgery: No Hx Breast Surgery: No Hx Breast Biopsy: No Hx Abdominal Surgery: No Hx Appendectomy: No Hx Cholecystectomy: No Hx Genitourinary Surgery: No Hx Section: No Hx Orthopedic Surgery: No Other Surgical History: SPLEENECTOMY, UMBILICAL HERNIA REPAIR Anesthesia Reaction: No - PPD History Date: 11/11/19 Results: 0MM - Smoking Cessation Smoking history: Current every day smoker Have you smoked in the past 12 months: Yes Aproximately how many cigarettes per day: 4 Cigars Per Day: 0 Hx Chewing Tobacco Use: No Initiated information on smoking cessation: Yes 'Breaking Loose' booklet given: 07/02/20 Admission Physical Exam [facility] - Vital Signs Vital Signs: Vital Signs - 24 hr 07/02/20 17:09 Temperature 96.1 F L Pulse Rate 83 Respiratory 18 Rate Blood Pressure 151/91 - Physical General Appearance: Yes: Mild Distress, Moderate Distress, Sweating, Anxious HEENTM: Yes: EOMI, Hearing grossly Normal, Normocephalic, Normal Voice Respiratory: Yes: Chest Non-Tender, Lungs Clear, Normal Breath Sounds, No Respiratory Distress, No Accessory Muscle Use Neck: Yes: No masses,lesions,Nodules, Trachea in good position Cardiology: Yes: Regular Rhythm, Regular Rate, S1, S2 Abdominal: Yes: Non Tender, Soft, Surgical Scar (MIDLINE ABDOMINAL) Back: Yes: Normal Inspection Musculoskeletal: Yes: Gait Steady Extremities: Yes: Normal Range of Motion, Non-Tender Neurological: Yes: Fully Oriented, Alert, Motor Strength 5/5, Normal Mood/Affect Integumentary: Yes: Warm, Track Fuller (CB UE , LEFT DORSUM OF HAND W/ EDEMA/ ERYTHEMA, INDURATION , OLD LEFT le TRACK DISHA SCARRING ,) - Diagnostic (1) Alcohol dependence, uncomplicated Current Visit: Yes Status: Chronic (2) Opioid dependence with withdrawal Current Visit: Yes Status: Chronic (3) Cocaine dependence Current Visit: Yes Status: Chronic Qualifiers: Substance use status: uncomplicated Qualified Code(s): F14.20 - Cocaine dependence, uncomplicated (4) Nicotine dependence Current Visit: Yes Status: Chronic Qualifiers: Nicotine product type: cigarettes Breathalyzer - Breathalyzer Breathalyzer: 0.020 Urine Drug Screen - Test Device Lot number: [id number] Expiration date: 12/31/21 - Control Is test valid?: Yes - Results Drug screen NEGATIVE: No Urine drug screen results: PAULA-Cocaine, FEN-Fentanyl, MOP-Opiates Inpatient Rehab Admission - Rehab Decision to Admit Inpatient rehab admission?: No
[2020-07-02] MEDS ORDERED: BISMUTH SUBSALICYLATE 524 MG/30 ML UD PO PRN (17:26)
[2020-07-02] MEDS ORDERED: METHOCARBAMOL 500 MG TABLET PO PRN (17:26)
[2020-07-02] MEDS ORDERED: ACETAMINOPHEN 325 MG TABLET (FP) PO PRN ×2 (17:26)
[2020-07-02] MEDS ORDERED: MENTHOL/PHENOL 1 EACH UD MM PRN (17:26)
[2020-07-02] MEDS ORDERED: MAG HYDROX/AL HYDROX/SIMETH 30 ML UNIT-DOSE CUP PO PRN (17:26)
[2020-07-02] MEDS ORDERED: MAGNESIUM HYDROX 2400MG/30ML ORAL SUSPENSION 30 ML CUP PO PRN (17:26)
[2020-07-02] MEDS ORDERED: IBUPROFEN 400 MG TABLET (FP) PO PRN (17:26)
[2020-07-02] MEDS ORDERED: hydrOXYzine PAMOATE 25 MG CAPSULE (FP) PO PRN (17:26)
[2020-07-02] MEDS ORDERED: ONDANSETRON *ODT* 4 MG TABLET SL PRN (17:26)
[2020-07-02] MEDS ORDERED: MAGNESIUM CITRATE 300 ML BOTTLE PO PRN (17:26)
[2020-07-02] MEDS ORDERED: chlordiazePOXIDE HCL 25 MG CAPSULE PO PRN (17:29)
[2020-07-02] MEDS ORDERED: cloNIDine HCL 0.1 MG TABLET PO PRN (17:29)
--- OUTSIDE RECORDS SUMMARY | 2020-07-02 19:06 | XMS ---
:1970 Author Organization [facility] Care Team Providers Name Role Phone AUSTIN WOODWARD MD Unavailable Unavailable Dinorah WOODWARD MD Unavailable Unavailable Dinorah WOODWARD MD Unavailable Unavailable Dinorah WOODWARD MD Unavailable Unavailable Dinorah WOODWARD MD Unavailable Unavailable Dinorah WOODWARD MD Unavailable Unavailable Dinorah WOODWARD MD Unavailable Unavailable Dinorah WOODWARD MD Unavailable Unavailable Dinorah WOODWARD MD Unavailable Unavailable Dinorah WOODWARD MD Unavailable Unavailable Dinorah WOOWDARD MD Unavailable Unavailable Dinorah WOODWARD MD Unavailable Unavailable Hill, Efren VALDEZ Unavailable Unavailable Hill, A Unavailable Unavailable Hill, A MD Unavailable Unavailable Hill, A Unavailable Unavailable MD Андрей Unavailable Unavailable [...] is protected by Article 27-F of the [place] State Public Health law. If you continue you may haveaccess to information: Regarding HIV / AIDS; Provided by facilities licensed or operated by the [facility] Office of Mental Health; or Provided by the [facility] Office for People With Developmental Disabilities. If such information is present, then the following [facility] mandated warning applies: This information has been [...] law may result in a fine or half-way sentence or both. A general authorization for the release of medical or other information is NOT sufficient authorization for further disclosure. Encounters Encounter Providers Location Date Indications Data Source(s ) Emergency Attender: Gokul Philip ICU-EMERG 05/08/2019 ABSCESS JORDI Vieyra MD 02:15:00 PM Hospital EDT - 05/08/2019 03:19:00 PM EDT ABSCESS Patient discharged. Emergency Attender: AUSTIN ICU-EMERG 04/06/2019 INABILITY TO ARLENS Elizabeth WOODWARD MDAttender: 04:37:00 PM EDT SWALLOW/TALK R maik Chiang MD - 04/07/2019 Hospital 01:33:00 AM EDT INABILITY TO SWALLOW/TALK Medications Medication Brand Start Product Dose Route Administrative Pharmacy [facility] Indications Reaction Description Data Name Date Form [...] name Policy type Policy ID Covered Covered democrat's Policy P love / Coverage democrat ID relationship to [place] [facility] ormation type augustine HEALTH FIRST [id number] SP [id number] MEDICARE HEALTH FIRST [id number] SP [id number] MEDICARE [place]ON[place] MEDICARE [id number] SP [id number] MEDICARE [id number] SP [id number] HEALTH FIRST [id number] SP [id number] MEDICARE SELF PAY SP INSURANCE Medicare Part Medicare [id number] 1 [id number] B Outpatient [facility] Medicaid [id number] 1 [id number] Medicaid 4013 [id number] S [id number] 2W Regular Clinic Visit Problems, Conditions, and Diagnoses Code Display Name Description Problem Type Effective Dates Data Source(s) L02.414 Cutaneous Cutaneous abscess Diagnosis 05/08/2019 [facility] - N ew abscess of left of left upper 02:15:00 PM EDT [facility] ABSCESS ABSCESS Diagnosis 05/08/2019 [facility] - New 02:15:00 PM EDT [facility] Results ID Date Data Source [id number] 02/26/2020 07:00:00 AM EDT [facility] Name Value Range Interpretation Description Data Sup porting Code Source(s) Document(s ) SARS [facility] CORONAVIRUS 2 RNA This lab was ordered by [facility] Ac ct Bill Inter and reported by [facility]. [...] System Body height 180.34 cm 180.34 cm [facility] Body temperature 98.9 [degF] 0 - 200 Normal (applies to 98.9 [degF ] [facility] non-numeric results) [facility] Body temperature 37.1 Madhavi 0 - 99.9 Normal (applies to 37.1 Madhavi [facility] non-numeric results) [facility] Diastolic blood 90 mm[Hg] 0 - 999 Above high normal 90 mm[Hg] [facility] pressure [facility] Systolic blood 132 mm[Hg] 0 - 999 Normal (applies to 132 mm[Hg] [facility] Deprecated Oxygen 97 % 0 - 999 Normal (applies to 97 % [facility] saturation in non-numeric results) H ealt System Capillary blood by Oximetry Respiratory rate 16 0 - 999 Normal (applies to 16 [facility] non-numeric results) [facility] Heart rate 72 0 - 999 Normal (applies to 72 [facility] non-numeric results) [facility] Patient Treatment Plan of Care Planned Activity Planned Date Details Description Data Source (s) Naproxen 500 MG Oral Tablet 05/08/2019 [facility] 03:00:25 PM EDT System Sulfamethoxazole 800 MG / 05/08/2019 [facility] Trimethoprim 160 MG Oral 03:00:04 PM EDT System Tablet [Bactrim] Cephalexin 500 MG Oral 05/08/2019 [facility] Capsule [Keflex] 02:58:55 PM EDT System
[2020-07-02] MEDS ORDERED: chlordiazePOXIDE HCL 25 MG CAPSULE PO ONE (19:15)
[2020-07-02] MEDS ORDERED: METHADONE HCL 10 MG TABLET (FOR DETOX USE ONLY) PO ONE (19:15)
[2020-07-02] MEDS: SULFAMETHOXAZOLE/TRIMETHOPRIM 800MG/160MG D.S. TABLET PO SCH (22:02)
[2020-07-02] MEDS: THIAMINE HCL 100 MG TABLET (FP) PO SCH (22:02)
[2020-07-02] MEDS: chlordiazePOXIDE HCL 25 MG CAPSULE PO SCH (22:04)
[2020-07-03] MEDS: chlordiazePOXIDE HCL 25 MG CAPSULE PO SCH ×4 (07:13→22:14)
--- NOTE | 2020-07-03 08:55 | PN ---
[facility] CIWA - CIWA Score Nausea/Vomitin Muscle Tremors: 2 Anxiety: 3 Agitation: 3 Paroxysmal Sweats: 1-Minimal Palms Moist Orientation: 0-Oriented Tacttile Disturbances: 1-Very Mild Itch/Numbness Auditory Disturbances: 0-None Visual Disturbances: 0-None Headache: 2-Mild CIWA-Ar Total Score: 14 [facility] COWS - Scale Resting Pulse: 0= [place] 80 or Below Sweatin= No chills or Flushing Restless Observation: 0= Sits Still Pupil Size: 1= Pupils >than Normal Bone or Joint Aches: 2= Severe Diffuse Aches Runny Nose/ Eye Tearin= Runny Nose/Eyes GI Upset > 30mins: 2= Nausea/Diarrhea Tremor Observation of Outstretched Hands: 2= Slight Tremor Visible Yawning Observation: 1= 1-2x During Session Anxiety or Irritability: 2=Irritable/Anxious Goose Flesh Skin: 0=Smooth Skin COWS Score: 12 S Progress Note (SOAP) Subjective: alert,irritable,anxious,interrupted sleep,tremor,pain in the body and back Objective: 07/03/20 09:25 Vital Signs Temperature 98.0 F 07/03/20 08:33 Pulse Rate 75 07/03/20 08:33 Respiratory Rate 18 07/03/20 08:33 Blood Pressure 122/82 07/03/20 08:33 O2 Sat by Pulse Oximetry (%) 98 07/03/20 06:39 labs pending Assessment: 07/03/20 09:26 withdrawal symptom Plan: continue detox methadone and librium regimen
[2020-07-03] MEDS ORDERED: METHADONE HCL 10 MG TABLET (FOR DETOX USE ONLY) ONE (09:00)
[2020-07-03] MEDS ORDERED: METHADONE HCL 5 MG TABLET (FOR DETOX USE ONLY) ONE (09:01)
--- NOTE | 2020-07-03 09:46 | CONSULT ---
[facility] Psychiatric Consult - Data Date of interview: 07/03/20 Admission source: [facility] Identifying data: Patient is a 49 year old single male, father of one, unemployed, domiciled, and is supported with disability [employer]. This is one of multiple admissions for patient. Patient admitted to for alcohol, cocaine, and opioid dependence. Substance Abuse History: History of alcohol, opiate, and cocaine dependence. Psychiatric History: Mr. Monroy reports history of one psychiatric hospitalization at the age of 18 at [facility] after he reported suicidal ideation as an attempt to be admitted into rehab. Mr. Monroy is currently provided with psychiatric care by Dr. Maine Diaz at [facility] and is prescribed wellbutrin 150mg BID + Gabapentin 400mg TID + Xanax 2mg TID + Ambien 10mg HS. Patient seen by literary writer on 02/27/20 and was prescribed wellbutrin 150mg BID + Gabapentin 400mg TID after it was verified by [facility]. No reported history of suicide attempt. At present patient reports stable mood. Physical/Sexual Abuse/Trauma History: denies. Mental Status Exam - Mental Status Exam Alert and Oriented to: Time, Place, Person Cognitive Function: Good Patient Appearance: Well Groomed Mood: Hopeful Affect: Appropriate Patient Behavior: Appropriate, Cooperative Speech Pattern: Appropriate Voice Loudness: Normal Thought Process: Goal Oriented Thought Disorder: Not Present Hallucinations: Denies Suicidal Ideation: Denies Homicidal Ideation: Denies Insight/Judgement: Poor Sleep: Poorly Appetite: Fair Muscle strength/Tone: Normal Gait/Station: Normal Psychiatric Findings - Problem List ([place] 1, 2,3) (1) Alcohol dependence, uncomplicated Current Visit: Yes Status: Acute (2) Cocaine dependence Current Visit: Yes Status: Chronic Qualifiers: Substance use status: uncomplicated Qualified Code(s): F14.20 - Cocaine de pendence, uncomplicated (3) Opioid dependence with withdrawal Current Visit: Yes Status: Acute (4) Mood disorder Current Visit: Yes Status: Chronic - Initial Treatment Plan Initial Treatment Plan: Psychoeducation provided. Detoxification in progress. Will order Wellbutrin 150mg BID @0800,1600 + Gabapentin 400mg TID. Benefits and side effects discussed. Verbal consent given.
[2020-07-03] MEDS ORDERED: METHADONE (DETOX) 20 MG, METHADONE (DETOX) 5 MG PO ONE (10:00)
--- NOTE | 2020-07-03 10:08 | EKG ---
Test Reason : Blood Pressure : / mmHG Vent. Rate : 063 BPM Atrial Rate : 063 BPM P-R Int : 150 ms QRS Dur : 094 ms QT Int : 440 ms P-R-T Axes : 071 070 065 degrees QTc Int : 450 ms NORMAL SINUS RHYTHM NONSPECIFIC T WAVE ABNORMALITY WHEN COMPARED WITH ECG OF 09-NOV-2019 18:52, NO SIGNIFICANT CHANGE WAS FOUND Confirmed by BRIANA AMADOR MD ([id number]) on 07/03/2020 10:08:12 AM Referred By: Matias Kc Confirmed By:BRIANA AMADOR MD
[2020-07-03] MEDS: PRENATAL VITAMINS W/ FOLIC ACID TABLET (FP) PO SCH (10:16)
[2020-07-03] MEDS: SULFAMETHOXAZOLE/TRIMETHOPRIM 800MG/160MG D.S. TABLET PO SCH ×2 (10:16→22:14)
[2020-07-03] MEDS: NICOTINE 7 MG/24 HOURS TOPICAL PATCH TD SCH (10:17)
[2020-07-03 10:37] LABS: ALBUMIN 3.9 g/dl (3.4-5.0); BILIRUBIN,TOTAL 1.2 mg/dL (0.2-1); BLOOD UREA NITROGEN 13.2 mg/dL (7-18); CALCIUM 9.1 mg/dL (8.5-10.1); CREATININE 0.9 mg/dL (0.55-1.3); POTASSIUM 3.6 mmol/L (3.5-5.1); TOT PROT 8.2 g/dl (6.4-8.2)
[2020-07-03 10:41] LABS: HEMATOCRIT 41.9 % (35.4-49); HEMOGLOBIN 14.1 GM/dL (11.7-16.9); MCH 28.8 pg (25.7-33.7); MCHC 33.7 g/dl (32.0-35.9); MEAN CELL VOLUME 85.5 fl (80-96); MEAN PLT VOLUME 9.1 fl (7.5-11.1); PLATELET COUNT 366 K/MM3 (134-434); RDW 15.4 % (11.9-15.9); WHITE BLOOD COUNT 13.4 K/mm3 (4.0-10.0)
[2020-07-03] MEDS: GABAPENTIN 400 MG CAPSULE PO SCH ×2 (14:18→22:14)
[2020-07-03] MEDS: buPROPion HCL 75 MG TABLET PO SCH (15:28)
[2020-07-03] MEDS: THIAMINE HCL 100 MG TABLET (FP) PO SCH (22:14)
[2020-07-03] MEDS: MELATONIN 5 MG TABLETS PO PRN (22:16)
[2020-07-04] MEDS: GABAPENTIN 400 MG CAPSULE PO SCH ×3 (05:14→22:14)
[2020-07-04] MEDS: chlordiazePOXIDE HCL 25 MG CAPSULE PO SCH ×4 (05:14→22:14)
[2020-07-04] MEDS: buPROPion HCL 75 MG TABLET PO SCH ×2 (07:24→18:26)
[2020-07-04] MEDS ORDERED: METHADONE HCL 10 MG TABLET (FOR DETOX USE ONLY) PO ONE (10:00)
[2020-07-04] MEDS: NICOTINE 7 MG/24 HOURS TOPICAL PATCH TD SCH (10:18)
[2020-07-04] MEDS: SULFAMETHOXAZOLE/TRIMETHOPRIM 800MG/160MG D.S. TABLET PO SCH ×2 (10:19→22:14)
[2020-07-04] MEDS: PRENATAL VITAMINS W/ FOLIC ACID TABLET (FP) PO SCH (10:19)
--- NOTE | 2020-07-04 10:46 | PN ---
S CIWA - CIWA Score Nausea/Vomitin-No Nausea/No Vomiting Muscle Tremors: 2 Anxiety: 3 Agitation: 0-Normal Activity Paroxysmal Sweats: 3 Orientation: 0-Oriented Tacttile Disturbances: 0-None Auditory Disturbances: 0-None Visual Disturbances: 0-None Headache: 2-Mild CIWA-Ar Total Score: 10 BHS COWS - Scale Resting Pulse: 0= [place] 80 or Below Sweatin= Chills/Flushing Restless Observation: 1= Difficult to Sit Still Pupil Size: 0= Normal to Room Light Bone or Joint Aches: 2= Severe Diffuse Aches Runny Nose/ Eye Tearin= None GI Upset > 30mins: 0= None Tremor Observation of Outstretched Hands: 2= Slight Tremor Visible Yawning Observation: 2= >3x During Session Anxiety or Irritability: 2=Irritable/Anxious Goose Flesh Skin: 0=Smooth Skin COWS Score: 10 BHS Progress Note (SOAP) Subjective: c/o anxiety, sweats, headache, shakes, irritability, and muscle aches. Objective: 07/04/20 10:45 Vital Signs 07/04/20 07/04/20 05:08 08:40 Temperature 98.1 F 96.8 F L Pulse Rate 63 63 Respiratory 16 18 Rate Blood Pressure 100/57 L 120/87 O2 Sat by Pulse 98 Oximetry (%) Laboratory Last Values WBC 13.4 K/mm3 (4.0-10.0) H 07/03/20 06:50 RBC 4.90 M/mm3 (4.00-5.60) 07/03/20 06:50 Hgb 14.1 GM/dL (11.7-16.9) 07/03/20 06:50 Hct 41.9 % (35.4-49) 07/03/20 06:50 MCV 85.5 fl (80-96) 07/03/20 06:50 MCH 28.8 pg (25.7-33.7) 07/03/20 06:50 MCHC 33.7 g/dl (32.0-35.9) 07/03/20 06:50 RDW 15.4 % (11.9-15.9) 07/03/20 06:50 Plt Count 366 K/MM3 (134-434) 07/03/20 06:50 MPV 9.1 fl (7.5-11.1) 07/03/20 06:50 Sodium 138 mmol/L (136-145) 07/03/20 06:50 Potassium 3.6 mmol/L (3.5-5.1) 07/03/20 06:50 Chloride 102 mmol/L (98-107) 07/03/20 06:50 Carbon Dioxide 28 mmol/L (21-32) 07/03/20 06:50 Anion Gap 8 MMOL/L (8-16) 07/03/20 06:50 BUN 13.2 mg/dL (7-18) 07/03/20 06:50 Creatinine 0.9 mg/dL (0.55-1.3) 07/03/20 06:50 Est GFR (CKD-EPI)AfAm 115.83 07/03/20 06:50 Est GFR (CKD-EPI)NonAf 99.94 07/03/20 06:50 Random Glucose 92 mg/dL (74-106) 07/03/20 06:50 Calcium 9.1 mg/dL (8.5-10.1) 07/03/20 06:50 Total Bilirubin 1.2 mg/dL (0.2-1) H 07/03/20 06:50 AST 22 U/L (15-37) 07/03/20 06:50 ALT 28 U/L (13-61) 07/03/20 06:50 Alkaline Phosphatase 81 U/L (45-117) 07/03/20 06:50 Total Protein 8.2 g/dl (6.4-8.2) 07/03/20 06:50 Albumin 3.9 g/dl (3.4-5.0) 07/03/20 06:50 Syphilis Serology Non-reactive (NONREACTIVE) 07/03/20 06:50 COVID-19 ([facility]) Not detected (Not Detected) 07/02/20 19:15 Labs noted. Assessment: 07/04/20 10:45 AOX3, in no acute respiratory distress. Full ROM, ambulating in the unit. Withdrawal symptoms. Plan: continue detox.
[2020-07-04] MEDS: MELATONIN 5 MG TABLETS PO PRN (22:15)
[2020-07-04] MEDS: THIAMINE HCL 100 MG TABLET (FP) PO SCH (22:15)
[2020-07-05] MEDS ORDERED: chlordiazePOXIDE HCL 10 MG CAPSULE PO PRN
[2020-07-05] MEDS: GABAPENTIN 400 MG CAPSULE PO SCH ×3 (05:28→22:27)
[2020-07-05] MEDS: chlordiazePOXIDE HCL 10 MG CAPSULE PO SCH ×4 (05:28→22:27)
[2020-07-05] MEDS: buPROPion HCL 75 MG TABLET PO SCH ×2 (07:01→18:49)
[2020-07-05] MEDS ORDERED: METHADONE HCL 10 MG TABLET (FOR DETOX USE ONLY) ONE (09:02)
[2020-07-05] MEDS ORDERED: METHADONE HCL 5 MG TABLET (FOR DETOX USE ONLY) ONE (09:03)
[2020-07-05] MEDS ORDERED: METHADONE (DETOX) 10 MG, METHADONE (DETOX) 5 MG PO ONE (10:00)
[2020-07-05] MEDS: NICOTINE 7 MG/24 HOURS TOPICAL PATCH TD SCH (10:20)
[2020-07-05] MEDS: PRENATAL VITAMINS W/ FOLIC ACID TABLET (FP) PO SCH (10:21)
[2020-07-05] MEDS: SULFAMETHOXAZOLE/TRIMETHOPRIM 800MG/160MG D.S. TABLET PO SCH ×2 (10:21→22:27)
--- NOTE | 2020-07-05 11:12 | PN ---
S CIWA - CIWA Score Nausea/Vomitin-Mild Nausea/No Vomiting Muscle Tremors: 2 Anxiety: 2 Agitation: 1-Slight > Activity Paroxysmal Sweats: No Perspiration Orientation: 0-Oriented Tacttile Disturbances: 0-None Auditory Disturbances: 0-None Visual Disturbances: 0-None Headache: 2-Mild CIWA-Ar Total Score: 8 BHS COWS - Scale Resting Pulse: 0= [place] 80 or Below Sweatin= No chills or Flushing Restless Observation: 0= Sits Still Pupil Size: 1= Pupils >than Normal Bone or Joint Aches: 1= Mild Discomfort Runny Nose/ Eye Tearin= None GI Upset > 30mins: 2= Nausea/Diarrhea Tremor Observation of Outstretched Hands: 2= Slight Tremor Visible Yawning Observation: 0= None Anxiety or Irritability: 2=Irritable/Anxious Goose Flesh Skin: 0=Smooth Skin COWS Score: 8 S Progress Note (SOAP) Subjective: 49 years old male was admitted on 07/02/20 for alcohol and opiate withdrawal sx management treating with librium and methadone detox regiment mr clay requests ear plugs due to roommate loud snore encourage fetch ear plugs from nursing office Objective: 07/05/20 11:11 Vital Signs - 24 hr 07/04/20 07/04/20 07/04/20 12:45 16:42 20:56 Temperature 98 F 97.9 F 96 F L Pulse Rate 65 55 L 70 Respiratory 18 17 18 Rate Blood Pressure 134/80 107/71 122/66 O2 Sat by Pulse 98 97 Oximetry (%) 07/05/20 07/05/20 07:02 08:18 Temperature 98.1 F 97.2 F L Pulse Rate 68 65 Respiratory 18 18 Rate Blood Pressure 107/73 138/85 O2 Sat by Pulse 97 Oximetry (%) Laboratory Tests 07/02/20 07/03/20 07/03/20 19:15 06:50 06:50 WBC 13.4 H RBC 4.90 Hgb 14.1 Hct 41.9 MCV 85.5 MCH 28.8 MCHC 33.7 RDW 15.4 Plt Count 366 MPV 9.1 Sodium Potassium Chloride Carbon Dioxide Anion Gap BUN Creatinine Est GFR (CKD-EPI)AfAm Est GFR (CKD-EPI)NonAf Random Glucose Calcium Total Bilirubin AST ALT Alkaline Phosphatase Total Protein Albumin Syphilis Serology Non-reactive COVID-19 ([facility]) Not detected 07/03/20 06:50 WBC RBC Hgb Hct MCV MCH MCHC RDW Plt Count MPV Sodium 138 Potassium 3.6 Chloride 102 Carbon Dioxide 28 Anion Gap 8 BUN 13.2 Creatinine 0.9 Est GFR (CKD-EPI)AfAm 115.83 Est GFR (CKD-EPI)NonAf 99.94 Random Glucose 92 Calcium 9.1 Total Bilirubin 1.2 H AST 22 ALT 28 Alkaline Phosphatase 81 Total Protein 8.2 Albumin 3.9 Syphilis Serology COVID-19 ([facility]) 07/05/20 11:27 wbc elevation repeat cbc Assessment: 07/05/20 11:28 alcohol and opiate withdrawal Plan: librium and methadone regiments
[2020-07-05] MEDS: THIAMINE HCL 100 MG TABLET (FP) PO SCH (22:26)
[2020-07-05] MEDS: MELATONIN 5 MG TABLETS PO PRN (22:27)
[2020-07-06] MEDS: chlordiazePOXIDE HCL 10 MG CAPSULE PO SCH ×2 (05:05→18:11)
[2020-07-06] MEDS: GABAPENTIN 400 MG CAPSULE PO SCH ×3 (05:05→22:04)
[2020-07-06] MEDS: buPROPion HCL 75 MG TABLET PO SCH ×2 (07:47→15:18)
--- NOTE | 2020-07-06 09:11 | PN ---
[facility] CIWA - CIWA Score Nausea/Vomitin-No Nausea/No Vomiting Muscle Tremors: 2 Anxiety: 2 Agitation: 1-Slight > Activity Paroxysmal Sweats: No Perspiration Orientation: 0-Oriented Tacttile Disturbances: 1-Very Mild Itch/Numbness Auditory Disturbances: 0-None Visual Disturbances: 0-None Headache: 1-Very Mild CIWA-Ar Total Score: 7 BHS COWS - Scale Resting Pulse: 0= [place] 80 or Below Sweatin= No chills or Flushing Restless Observation: 0= Sits Still Pupil Size: 1= Pupils >than Normal Bone or Joint Aches: 1= Mild Discomfort Runny Nose/ Eye Tearin= Nasal Congestion GI Upset > 30mins: 1= Stomach Cramp Tremor Observation of Outstretched Hands: 1= Tremor [place], Not Seen Yawning Observation: 1= 1-2x During Session Anxiety or Irritability: 2=Irritable/Anxious Goose Flesh Skin: 0=Smooth Skin COWS Score: 8 [facility] Progress Note (SOAP) Subjective: alert,irritable,anxious,interrupted sleep,pain in the body,aching pain Objective: 07/06/20 10:30 Vital Signs Temperature 96 F L 07/06/20 06:49 Pulse Rate 61 07/06/20 06:49 Respiratory Rate 18 07/06/20 06:49 Blood Pressure 102/68 07/06/20 06:49 O2 Sat by Pulse Oximetry (%) 96 07/06/20 06:49 Assessment: 07/06/20 10:30 withdrawal symptom Plan: continue detox methadone and librium regimen,discharge in am
[2020-07-06] MEDS ORDERED: METHADONE HCL 10 MG TABLET (FOR DETOX USE ONLY) PO ONE (10:00)
[2020-07-06] MEDS: NICOTINE 7 MG/24 HOURS TOPICAL PATCH TD SCH (10:11)
[2020-07-06] MEDS: SULFAMETHOXAZOLE/TRIMETHOPRIM 800MG/160MG D.S. TABLET PO SCH ×2 (10:11→22:04)
[2020-07-06] MEDS: PRENATAL VITAMINS W/ FOLIC ACID TABLET (FP) PO SCH (10:12)
[2020-07-06 10:29] LABS: HEMATOCRIT 42.1 % (35.4-49); HEMOGLOBIN 13.9 GM/dL (11.7-16.9); MCH 28.8 pg (25.7-33.7); MCHC 33.1 g/dl (32.0-35.9); PLATELET COUNT 398 K/MM3 (134-434); RBC 4.84 M/mm3 (4.00-5.60); RDW 15.8 % (11.9-15.9); WHITE BLOOD COUNT 12.9 K/mm3 (4.0-10.0)
[2020-07-06] MEDS: THIAMINE HCL 100 MG TABLET (FP) PO SCH (22:04)
[2020-07-06] MEDS: MELATONIN 5 MG TABLETS PO PRN (22:05)
[2020-07-07] MEDS ORDERED: chlordiazePOXIDE HCL 10 MG CAPSULE PO ONE (05:00)
[2020-07-07] MEDS ORDERED: METHADONE HCL 5 MG TABLET (FOR DETOX USE ONLY) PO ONE (06:00)
[2020-07-07] MEDS: buPROPion HCL 75 MG TABLET PO SCH (07:04)
[2020-07-07] MEDS: GABAPENTIN 400 MG CAPSULE PO SCH (07:06)
--- NOTE | 2020-07-07 08:46 | DS ---
[facility] Detox Discharge Summary Admission Date: 07/02/20 - History Present History: Alcohol Dependence, Cocaine Dependence, Opioid Dependence - Physical Exam Results Vital Signs: Vital Signs Temperature 97.5 F L 07/07/20 06:24 Pulse Rate 51 L 07/07/20 06:24 Respiratory Rate 18 07/07/20 06:24 Blood Pressure 102/63 07/07/20 06:24 O2 Sat by Pulse Oximetry (%) 99 07/07/20 06:24 - Medication Discharge Medications: Ambulatory Orders Alprazolam [Xanax] 2 mg PO TID 02/26/20 Bupropion HCl [Wellbutrin -] 150 mg PO BID 02/26/20 Gabapentin [Neurontin -] 600 mg PO TID 02/26/20 Ibuprofen [Motrin -] 800 mg PO TID 02/26/20 Oxycodone HCl [Oxycontin] 30 mg PO BID 02/26/20 Naloxone HCl [Narcan] 4 mg NS ASDIR PRN #1 spray 03/01/20
--- NOTE | 2020-07-07 08:46 | PN ---
[facility] CIWA - CIWA Score Nausea/Vomitin-No Nausea/No Vomiting Muscle Tremors: None Anxiety: 1-Mildly Anxious Agitation: 0-Normal Activity Paroxysmal Sweats: No Perspiration Orientation: 0-Oriented Tacttile Disturbances: 0-None Auditory Disturbances: 0-None Visual Disturbances: 0-None Headache: 0-None Present CIWA-Ar Total Score: 1 [facility] COWS - Scale Resting Pulse: 0= [place] 80 or Below Sweatin= No chills or Flushing Restless Observation: 0= Sits Still Pupil Size: 0= Normal to Room Light Bone or Joint Aches: 0= None Runny Nose/ Eye Tearin= None GI Upset > 30mins: 0= None Tremor Observation of Outstretched Hands: 0= None Yawning Observation: 0= None Anxiety or Irritability: 1=Feels Anxious/Irritable Goose Flesh Skin: 0=Smooth Skin COWS Score: 1 [facility] Progress Note (SOAP) Subjective: alert,no complaint Objective: 07/07/20 11:03 Vital Signs Temperature 96.8 F L 07/07/20 08:49 Pulse Rate 61 07/07/20 08:49 Respiratory Rate 16 07/07/20 08:49 Blood Pressure 95/60 07/07/20 08:49 O2 Sat by Pulse Oximetry (%) 99 07/07/20 06:24 Assessment: 07/07/20 11:03 detox completed,no withdrawal symptom Plan: stable for discahrge today,declined rehab,follow up with after care program as arrangement
[2020-07-07 10:02] VITALS: BP 95/60; PULSE 61; TEMP 96.8
[2020-07-07] MEDS: NICOTINE 7 MG/24 HOURS TOPICAL PATCH TD SCH (10:12)
[2020-07-07] MEDS: PRENATAL VITAMINS W/ FOLIC ACID TABLET (FP) PO SCH (10:12)
[2020-07-07] MEDS: SULFAMETHOXAZOLE/TRIMETHOPRIM 800MG/160MG D.S. TABLET PO SCH (10:12)
--- NOTE | 2020-07-07 11:14 | DS ---
[facility] Detox Discharge Summary Admission Date: 07/02/20 Discharge Date: 07/07/20 - History Present History: Alcohol Dependence, Cocaine Dependence, Opioid Dependence Additional Comments: alert,oriented x 3 ambulation on the unit lung clear on auscultation bilaterally abdomen soft,no pain no edema of legs detox completed,no withdrawal symptom declined detox follow up with out patient program [facility] as arrangement by Counselor total time spending on discharge 35 minutes Pertinent Past History: mood disorder seizure syncope mood disorder history of bipolar disorder - Physical Exam Results Vital Signs: Vital Signs Temperature 96.8 F L 07/07/20 08:49 Pulse Rate 61 07/07/20 08:49 Respiratory Rate 16 07/07/20 08:49 Blood Pressure 95/60 07/07/20 08:49 O2 Sat by Pulse Oximetry (%) 99 07/07/20 06:24 Pertinent Admission Physical Exam Findings: withdrawal signs and symptom Laboratory Last Values WBC 12.9 K/mm3 (4.0-10.0) H 07/06/20 07:25 RBC 4.84 M/mm3 (4.00-5.60) 07/06/20 07:25 Hgb 13.9 GM/dL (11.7-16.9) 07/06/20 07:25 Hct 42.1 % (35.4-49) 07/06/20 07:25 MCV 87.0 fl (80-96) 07/06/20 07:25 MCH 28.8 pg (25.7-33.7) 07/06/20 07:25 MCHC 33.1 g/dl (32.0-35.9) 07/06/20 07:25 RDW 15.8 % (11.9-15.9) 07/06/20 07:25 Plt Count 398 K/MM3 (134-434) 07/06/20 07:25 MPV 9.0 fl (7.5-11.1) 07/06/20 07:25 Sodium 138 mmol/L (136-145) 07/03/20 06:50 Potassium 3.6 mmol/L (3.5-5.1) 07/03/20 06:50 Chloride 102 mmol/L (98-107) 07/03/20 06:50 Carbon Dioxide 28 mmol/L (21-32) 07/03/20 06:50 Anion Gap 8 MMOL/L (8-16) 07/03/20 06:50 BUN 13.2 mg/dL (7-18) 07/03/20 06:50 Creatinine 0.9 mg/dL (0.55-1.3) 07/03/20 06:50 Est GFR (CKD-EPI)AfAm 115.83 07/03/20 06:50 Est GFR (CKD-EPI)NonAf 99.94 07/03/20 06:50 Random Glucose 92 mg/dL (74-106) 07/03/20 06:50 Calcium 9.1 mg/dL (8.5-10.1) 07/03/20 06:50 Total Bilirubin 1.2 mg/dL (0.2-1) H 07/03/20 06:50 AST 22 U/L (15-37) 07/03/20 06:50 ALT 28 U/L (13-61) 07/03/20 06:50 Alkaline Phosphatase 81 U/L (45-117) 07/03/20 06:50 Total Protein 8.2 g/dl (6.4-8.2) 07/03/20 06:50 Albumin 3.9 g/dl (3.4-5.0) 07/03/20 06:50 Syphilis Serology Non-reactive (NONREACTIVE) 07/03/20 06:50 COVID-19 ([facility]) Not detected (Not Detected) 07/02/20 19:15 Vital Signs Temperature 96.8 F L 07/07/20 08:49 Pulse Rate 61 07/07/20 08:49 Respiratory Rate 16 07/07/20 08:49 Blood Pressure 95/60 07/07/20 08:49 O2 Sat by Pulse Oximetry (%) 99 07/07/20 06:24 - Treatment Hospital Course: Detox Protocol Followed, Detoxed Safely, Responded well, Discharged Condition Good Patient has Accepted a Rehab Referral to: declined - Medication Discharge Medications: Ambulatory Orders Alprazolam [Xanax] 2 mg PO TID 02/26/20 Bupropion HCl [Wellbutrin -] 150 mg PO BID 02/26/20 Gabapentin [Neurontin -] 600 mg PO TID 02/26/20 Ibuprofen [Motrin -] 800 mg PO TID 02/26/20 Oxycodone HCl [Oxycontin] 30 mg PO BID 02/26/20 Naloxone HCl [Narcan] 4 mg NS ASDIR PRN #1 spray 03/01/20 - Diagnosis (1) Opioid dependence with withdrawal Current Visit: Yes Status: Acute (2) Alcohol dependence, uncomplicated Current Visit: Yes Status: Acute (3) Cocaine dependence Current Visit: Yes Status: Chronic Qualifiers: Substance use status: uncomplicated Qualified Code(s): F14.20 - Cocaine dependence, uncomplicated (4) Mood disorder Current Visit: Yes Status: Chronic (5) Nicotine dependence Current Visit: Yes Status: Chronic Qualifiers: Nicotine product type: cigarettes (6) IVDU (intravenous drug user) Current Visit: No Status: Acute (7) Seizure Current Visit: No Status: Acute (8) Syncope Current Visit: No Status: Acute (9) Bipolar disorder Current Visit: No Status: Chronic - AMA Did Patient Leave Against Medical Advice: No
== END 2020-07-07 12:40 | disposition home or self-care (01) | DRG 897 ==
LOC: YASAS 16:31 → Y3N 19:02
PROVIDERS: ADMIT Allergy & Immunology; ATTEND Allergy & Immunology
PROC: HZ2ZZZZ Detoxification Services for Substance Abuse Treatment (ICD-10-PCS; principal; 2020-07-02)
DX: F11.23 Opioid dependence with withdrawal (principal); F14.20 Cocaine dependence, uncomplicated; F13.20 Sedative, hypnotic or anxiolytic dependence, uncomplicated; F10.230 Alcohol dependence with withdrawal, uncomplicated; F17.210 Nicotine dependence, cigarettes, uncomplicated; F31.9 Bipolar disorder, unspecified; F39 Unspecified mood [affective] disorder; Z86.69 Personal history of other diseases of the nervous system and sense organs; Z98.890 Other specified postprocedural states; Z90.81 Acquired absence of spleen
CPT/HCPCS: 36415; 80053; 85027; 86780; 93005; 93010; C9803; U0003

== ENCOUNTER 2021-10-02 10:47 | Inpatient (IN) | payer MEDICARE, OTHER ==
[2021-10-02 12:58] VITALS: BMI 28.5
[2021-10-02] MEDS ORDERED: NICOTINE POLACRILEX 2 MG GUM BUC PRN (15:40)
[2021-10-02] MEDS ORDERED: MAGNESIUM HYDROX 2400MG/30ML ORAL SUSPENSION 30 ML CUP PO PRN (15:40)
[2021-10-02] MEDS ORDERED: MAG HYDROX/AL HYDROX/SIMETH 30 ML UNIT-DOSE CUP PO PRN (15:40)
[2021-10-02] MEDS ORDERED: BISMUTH SUBSALICYLATE 524 MG/30 ML PO PRN (15:40)
[2021-10-02] MEDS ORDERED: MENTHOL/PHENOL 1 EACH UD MM PRN (15:40)
[2021-10-02] MEDS ORDERED: ONDANSETRON *ODT* 4 MG TABLET SL PRN (15:40)
[2021-10-02] MEDS ORDERED: MAGNESIUM CITRATE 300 ML BOTTLE PO PRN (15:40)
[2021-10-02] MEDS ORDERED: ACETAMINOPHEN 325 MG TABLET (FP) PO PRN ×2 (15:40)
[2021-10-02] MEDS ORDERED: cloNIDine HCL 0.1 MG TABLET PO PRN (19:23)
[2021-10-02] MEDS ORDERED: HYDROCORTISONE 0.5% TOPICAL CREAM 30 GM TUBE TP PRN (19:27)
[2021-10-02] MEDS ORDERED: DOCUSATE SODIUM 100 MG CAPSULE (FP) PO PRN (19:58)
[2021-10-02] MEDS: NICOTINE 14 MG/24 HOURS TOPICAL PATCH TD SCH (20:15)
[2021-10-02] MEDS ORDERED: methaDONE HCL 10 MG TABLET (FOR DETOX USE ONLY) PO ONE (22:00)
[2021-10-02] MEDS: METHOCARBAMOL 500 MG TABLET PO PRN (22:09)
[2021-10-02] MEDS: BACITRACIN 15 GM TUBE TOPICAL OINTMENT TP SCH (22:10)
[2021-10-02] MEDS: MELATONIN 5 MG TABLETS PO SCH (22:10)
[2021-10-02] MEDS: THIAMINE HCL 100 MG TABLET (FP) PO SCH (22:10)
[2021-10-03] MEDS ORDERED: methaDONE HCL 10 MG TABLET (FOR DETOX USE ONLY) ONE (09:05)
[2021-10-03 09:57] LABS: ALBUMIN 3.2 g/dl (3.4-5.0); BLOOD UREA NITROGEN 12.8 mg/dL (7-18); CALCIUM 8.6 mg/dL (8.5-10.1)
[2021-10-03 09:59] LABS: CREATININE 0.7 mg/dL (0.55-1.3)
[2021-10-03 10:01] LABS: BILIRUBIN,TOTAL 0.5 mg/dL (0.2-1); TOT PROT 7.2 g/dl (6.4-8.2)
[2021-10-03 10:14] LABS: HEMATOCRIT 42.3 % (35.4-49); HEMOGLOBIN 13.3 GM/dL (11.7-16.9); MCH 28.1 pg (25.7-33.7); MCHC 31.3 g/dl (32.0-35.9); MEAN CELL VOLUME 89.9 fl (80-96); MEAN PLT VOLUME 9.6 fl (7.5-11.1); PLATELET COUNT 371 10^3/uL (134-434); RBC 4.71 M/mm3 (4.00-5.60); RDW 15.8 % (11.9-15.9); WHITE BLOOD COUNT 14.3 K/mm3 (4.0-10.0)
[2021-10-03] MEDS: predniSONE 20 MG TABLET (UD) PO SCH (11:13)
[2021-10-03] MEDS: NICOTINE 14 MG/24 HOURS TOPICAL PATCH TD SCH (11:14)
[2021-10-03] MEDS: PRENATAL VITAMINS W/ FOLIC ACID TABLET (FP) PO SCH (11:14)
[2021-10-03] MEDS: buPROPion HCL 75 MG TABLET PO SCH ×2 (12:20→17:36)
[2021-10-03] MEDS: BACITRACIN 15 GM TUBE TOPICAL OINTMENT TP SCH ×2 (12:40→21:45)
[2021-10-03] MEDS: GABAPENTIN 400 MG CAPSULE PO SCH ×2 (15:57→21:45)
[2021-10-03] MEDS: METHOCARBAMOL 500 MG TABLET PO PRN (17:37)
[2021-10-03] MEDS: MELATONIN 5 MG TABLETS PO SCH (21:45)
[2021-10-03] MEDS: THIAMINE HCL 100 MG TABLET (FP) PO SCH (21:45)
[2021-10-04] MEDS: GABAPENTIN 400 MG CAPSULE PO SCH ×3 (06:16→22:35)
[2021-10-04] MEDS: METHOCARBAMOL 500 MG TABLET PO PRN (09:50)
[2021-10-04] MEDS: PRENATAL VITAMINS W/ FOLIC ACID TABLET (FP) PO SCH (09:50)
[2021-10-04] MEDS: buPROPion HCL 75 MG TABLET PO SCH ×2 (09:50→17:59)
[2021-10-04] MEDS: NICOTINE 14 MG/24 HOURS TOPICAL PATCH TD SCH (09:50)
[2021-10-04] MEDS: diazePAM 5 MG TABLET PO PRN (09:50)
[2021-10-04] MEDS: predniSONE 20 MG TABLET (UD) PO SCH (09:50)
[2021-10-04] MEDS ORDERED: methaDONE HCL 10 MG TABLET (FOR DETOX USE ONLY) PO ONE (10:00)
[2021-10-04] MEDS: BACITRACIN 15 GM TUBE TOPICAL OINTMENT TP SCH ×2 (10:12→22:35)
[2021-10-04] MEDS: MELATONIN 5 MG TABLETS PO SCH (22:35)
[2021-10-04] MEDS: THIAMINE HCL 100 MG TABLET (FP) PO SCH (22:35)
[2021-10-04] MEDS: IBUPROFEN 400 MG TABLET (FP) PO PRN (22:37)
[2021-10-05] MEDS: GABAPENTIN 400 MG CAPSULE PO SCH ×3 (06:59→22:50)
[2021-10-05] MEDS ORDERED: methaDONE HCL 10 MG TABLET (FOR DETOX USE ONLY) ONE (10:03)
[2021-10-05] MEDS: BACITRACIN 15 GM TUBE TOPICAL OINTMENT TP SCH ×2 (11:19→22:51)
[2021-10-05] MEDS: NICOTINE 14 MG/24 HOURS TOPICAL PATCH TD SCH (11:19)
[2021-10-05] MEDS: METHOCARBAMOL 500 MG TABLET PO PRN (11:19)
[2021-10-05] MEDS: predniSONE 20 MG TABLET (UD) PO SCH (11:19)
[2021-10-05] MEDS: diazePAM 5 MG TABLET PO PRN (11:19)
[2021-10-05] MEDS: PRENATAL VITAMINS W/ FOLIC ACID TABLET (FP) PO SCH (11:20)
[2021-10-05] MEDS: buPROPion HCL 75 MG TABLET PO SCH ×2 (11:23→17:56)
[2021-10-05] MEDS: THIAMINE HCL 100 MG TABLET (FP) PO SCH (22:50)
[2021-10-05] MEDS: hydrOXYzine PAMOATE 25 MG CAPSULE (FP) PO PRN (22:50)
[2021-10-05] MEDS: MELATONIN 5 MG TABLETS PO SCH (22:51)
[2021-10-06] MEDS: GABAPENTIN 400 MG CAPSULE PO SCH ×3 (06:11→23:34)
[2021-10-06] MEDS ORDERED: methaDONE HCL 10 MG TABLET (FOR DETOX USE ONLY) PO ONE (10:00)
[2021-10-06] MEDS: predniSONE 20 MG TABLET (UD) PO SCH (10:31)
[2021-10-06] MEDS: buPROPion HCL 75 MG TABLET PO SCH ×2 (10:31→17:41)
[2021-10-06] MEDS: NICOTINE 14 MG/24 HOURS TOPICAL PATCH TD SCH (10:31)
[2021-10-06] MEDS: BACITRACIN 15 GM TUBE TOPICAL OINTMENT TP SCH ×2 (10:31→23:34)
[2021-10-06] MEDS: PRENATAL VITAMINS W/ FOLIC ACID TABLET (FP) PO SCH (10:31)
[2021-10-06 12:07] LABS: HEMATOCRIT 46.7 % (35.4-49); HEMOGLOBIN 14.7 GM/dL (11.7-16.9); MCH 28.5 pg (25.7-33.7); MCHC 31.4 g/dl (32.0-35.9); MEAN CELL VOLUME 90.6 fl (80-96); MEAN PLT VOLUME 9.2 fl (7.5-11.1); PLATELET COUNT 441 10^3/uL (134-434); RBC 5.15 M/mm3 (4.00-5.60); RDW 15.8 % (11.9-15.9); WHITE BLOOD COUNT 15.9 K/mm3 (4.0-10.0)
[2021-10-06] MEDS: MELATONIN 5 MG TABLETS PO SCH (23:34)
[2021-10-06] MEDS: THIAMINE HCL 100 MG TABLET (FP) PO SCH (23:34)
[2021-10-07] MEDS: GABAPENTIN 400 MG CAPSULE PO SCH ×3 (06:45→23:00)
[2021-10-07] MEDS: PRENATAL VITAMINS W/ FOLIC ACID TABLET (FP) PO SCH (11:11)
[2021-10-07] MEDS: buPROPion HCL 75 MG TABLET PO SCH ×2 (11:11→17:35)
[2021-10-07] MEDS: hydrOXYzine PAMOATE 25 MG CAPSULE (FP) PO PRN (11:11)
[2021-10-07] MEDS: predniSONE 20 MG TABLET (UD) PO SCH (11:11)
[2021-10-07] MEDS: NICOTINE 14 MG/24 HOURS TOPICAL PATCH TD SCH (11:15)
[2021-10-07] MEDS: BACITRACIN 15 GM TUBE TOPICAL OINTMENT TP SCH ×2 (11:22→23:13)
[2021-10-07] MEDS: predniSONE 5 MG TABLET (UD) PO SCH (16:08)
[2021-10-07] MEDS: THIAMINE HCL 100 MG TABLET (FP) PO SCH (23:00)
[2021-10-07] MEDS: MELATONIN 5 MG TABLETS PO SCH (23:00)
[2021-10-07] MEDS: BACITRACIN 0.9 GM PACKET TP SCH (23:19)
[2021-10-08] MEDS: GABAPENTIN 400 MG CAPSULE PO SCH (06:29)
[2021-10-08 09:13] VITALS: BP 133/86; PULSE 90; TEMP 96.9
[2021-10-08] MEDS: predniSONE 5 MG TABLET (UD) PO SCH (11:38)
[2021-10-08] MEDS: hydrOXYzine PAMOATE 25 MG CAPSULE (FP) PO PRN (11:38)
[2021-10-08] MEDS: IBUPROFEN 400 MG TABLET (FP) PO PRN (11:39)
[2021-10-08] MEDS: buPROPion HCL 75 MG TABLET PO SCH (11:39)
[2021-10-08] MEDS: PRENATAL VITAMINS W/ FOLIC ACID TABLET (FP) PO SCH (11:39)
[2021-10-08] MEDS: NICOTINE 14 MG/24 HOURS TOPICAL PATCH TD SCH (11:39)
[2021-10-08] MEDS: BACITRACIN 0.9 GM PACKET TP SCH (12:08)
== END 2021-10-08 12:36 | disposition home or self-care (01) | DRG 896 ==
LOC: YASAS 10:47 → Y3N 18:21
PROVIDERS: ADMIT Allergy & Immunology; ATTEND Allergy & Immunology
PROC: HZ2ZZZZ Detoxification Services for Substance Abuse Treatment (ICD-10-PCS; principal; 2021-10-02)
DX: F11.23 Opioid dependence with withdrawal (principal); U07.1 COVID-19; F14.20 Cocaine dependence, uncomplicated; F10.20 Alcohol dependence, uncomplicated; F17.210 Nicotine dependence, cigarettes, uncomplicated; F10.280 Alcohol dependence with alcohol-induced anxiety disorder; F10.282 Alcohol dependence with alcohol-induced sleep disorder; F39 Unspecified mood [affective] disorder; D72.829 Elevated white blood cell count, unspecified; G40.909 Epilepsy, unspecified, not intractable, without status epilepticus; R21 Rash and other nonspecific skin eruption; Z62.810 Personal history of physical and sexual abuse in childhood; Z91.410 Personal history of adult physical and sexual abuse; Z87.01 Personal history of pneumonia (recurrent)
CPT/HCPCS: 36415; 80053; 85027; 86780; C9803; U0003; U0005

== ENCOUNTER 2021-10-06 16:53 | Emergency (ER) | payer MEDICARE, OTHER ==
[2021-10-06 18:05] VITALS: BMI 28.0
[2021-10-07 00:42] VITALS: BP 143/83; PULSE 58
== END 2021-10-07 01:07 | disposition home or self-care (01) ==
LOC: JER 16:53
DX: R21 Rash and other nonspecific skin eruption (principal)
CPT/HCPCS: 99281-25

== ENCOUNTER 2022-05-02 22:04 | Inpatient (IN) | payer MEDICARE, OTHER ==
[2022-05-02 22:55] VITALS: BMI 27.8
[2022-05-03] MEDS ORDERED: DICYCLOMINE HCL 10 MG CAPSULE PO PRN (00:36)
[2022-05-03] MEDS ORDERED: MAGNESIUM CITRATE 300 ML BOTTLE PO PRN (00:36)
[2022-05-03] MEDS ORDERED: NICOTINE 10 MG CARTRIDGE (INHALER) IH PRN (00:36)
[2022-05-03] MEDS ORDERED: MAG HYDROX/AL HYDROX/SIMETH 30 ML UNIT-DOSE CUP PO PRN (00:36)
[2022-05-03] MEDS ORDERED: MAGNESIUM HYDROX 2400MG/30ML ORAL SUSPENSION 30 ML CUP PO PRN (00:36)
[2022-05-03] MEDS ORDERED: IBUPROFEN 400 MG TABLET (FP) PO PRN (00:36)
[2022-05-03] MEDS ORDERED: ONDANSETRON *ODT* 4 MG TABLET SL PRN (00:36)
[2022-05-03] MEDS ORDERED: BISMUTH SUBSALICYLATE 524 MG/30 ML PO PRN (00:36)
[2022-05-03] MEDS ORDERED: LOPERAMIDE HCL 2 MG CAPSULE PO PRN (00:36)
[2022-05-03] MEDS ORDERED: BENZOCAINE/MENTHOL (CHLORASEPTIC ) LOZENGE MM PRN (00:36)
[2022-05-03] MEDS ORDERED: ACETAMINOPHEN 325 MG TABLET (FP) PO PRN ×2 (00:36)
[2022-05-03] MEDS: IBUPROFEN 600 MG TABLET (FP) PO PRN (01:22)
[2022-05-03] MEDS: METHOCARBAMOL 500 MG TABLET PO PRN (01:22)
[2022-05-03] MEDS ORDERED: cloNIDine HCL 0.1 MG TABLET PO PRN (10:05)
[2022-05-03] MEDS: NICOTINE 21 MG/24 HOURS TOPICAL PATCH TD SCH (10:33)
[2022-05-03] MEDS: PRENATAL VITAMINS W/ FOLIC ACID TABLET (FP) PO SCH (10:33)
[2022-05-03] MEDS ORDERED: methaDONE HCL 10 MG TABLET (FOR DETOX USE ONLY) PO ONE (10:45)
[2022-05-03 11:08] LABS: HEMATOCRIT 39.9 % (35.4-49); HEMOGLOBIN 13.2 GM/dL (11.7-16.9); MCH 28.6 pg (25.7-33.7); MCHC 33.1 g/dl (32.0-35.9); MEAN CELL VOLUME 86.5 fl (80-96); MEAN PLT VOLUME 9.7 fl (7.5-11.1); PLATELET COUNT 292 10^3/uL (134-434); RBC 4.62 M/mm3 (4.00-5.60); WHITE BLOOD COUNT 9.1 K/mm3 (4.0-10.0)
[2022-05-03 11:35] LABS: ALBUMIN 3.1 g/dl (3.4-5.0); CALCIUM 8.4 mg/dL (8.5-10.1)
[2022-05-03 11:39] LABS: CREATININE 0.8 mg/dL (0.55-1.3)
[2022-05-03 11:40] LABS: BILIRUBIN,TOTAL 0.2 mg/dL (0.2-1); TOT PROT 7.1 g/dl (6.4-8.2)
[2022-05-03] MEDS: lamoTRIgine 25 MG TABLET PO SCH (14:31)
[2022-05-03] MEDS: ARIPiprazole 2 MG TABLET PO SCH (14:31)
[2022-05-03] MEDS: GABAPENTIN 100 MG CAPSULE PO SCH (14:33)
[2022-05-04] MEDS: MELATONIN 5 MG TABLETS PO SCH ×2 (00:04→22:32)
[2022-05-04] MEDS: THIAMINE HCL 100 MG TABLET (FP) PO SCH ×2 (00:07→22:32)
[2022-05-04] MEDS: GABAPENTIN 100 MG CAPSULE PO SCH ×4 (00:07→22:32)
[2022-05-04] MEDS: IBUPROFEN 600 MG TABLET (FP) PO PRN (05:44)
[2022-05-04] MEDS: METHOCARBAMOL 500 MG TABLET PO PRN (05:44)
[2022-05-04] MEDS: ARIPiprazole 2 MG TABLET PO SCH (11:04)
[2022-05-04] MEDS: lamoTRIgine 25 MG TABLET PO SCH (11:04)
[2022-05-04] MEDS: PRENATAL VITAMINS W/ FOLIC ACID TABLET (FP) PO SCH (11:04)
[2022-05-04] MEDS: NICOTINE 21 MG/24 HOURS TOPICAL PATCH TD SCH (11:05)
[2022-05-05] MEDS: GABAPENTIN 100 MG CAPSULE PO SCH ×3 (05:25→22:24)
[2022-05-05] MEDS ORDERED: methaDONE HCL 10 MG TABLET (FOR DETOX USE ONLY) PO ONE (10:00)
[2022-05-05] MEDS: PRENATAL VITAMINS W/ FOLIC ACID TABLET (FP) PO SCH (10:59)
[2022-05-05] MEDS: NICOTINE 21 MG/24 HOURS TOPICAL PATCH TD SCH (10:59)
[2022-05-05] MEDS: METHOCARBAMOL 500 MG TABLET PO PRN (11:00)
[2022-05-05] MEDS: lamoTRIgine 25 MG TABLET PO SCH (11:00)
[2022-05-05] MEDS: ARIPiprazole 2 MG TABLET PO SCH (11:00)
[2022-05-05] MEDS: THIAMINE HCL 100 MG TABLET (FP) PO SCH (22:24)
[2022-05-05] MEDS: MELATONIN 5 MG TABLETS PO SCH (22:24)
[2022-05-06] MEDS: GABAPENTIN 100 MG CAPSULE PO SCH ×3 (05:51→22:29)
[2022-05-06] MEDS: METHOCARBAMOL 500 MG TABLET PO PRN ×2 (10:32→18:12)
[2022-05-06] MEDS: lamoTRIgine 25 MG TABLET PO SCH (10:32)
[2022-05-06] MEDS: ARIPiprazole 2 MG TABLET PO SCH (10:32)
[2022-05-06] MEDS: PRENATAL VITAMINS W/ FOLIC ACID TABLET (FP) PO SCH (10:32)
[2022-05-06] MEDS: NICOTINE 21 MG/24 HOURS TOPICAL PATCH TD SCH (10:33)
[2022-05-06] MEDS: THIAMINE HCL 100 MG TABLET (FP) PO SCH (22:29)
[2022-05-06] MEDS: MELATONIN 5 MG TABLETS PO SCH (22:29)
[2022-05-07] MEDS: GABAPENTIN 100 MG CAPSULE PO SCH ×3 (06:25→22:33)
[2022-05-07] MEDS ORDERED: methaDONE HCL 10 MG TABLET (FOR DETOX USE ONLY) PO ONE (10:00)
[2022-05-07] MEDS: lamoTRIgine 25 MG TABLET PO SCH (10:52)
[2022-05-07] MEDS: ARIPiprazole 2 MG TABLET PO SCH (10:53)
[2022-05-07] MEDS: NICOTINE 21 MG/24 HOURS TOPICAL PATCH TD SCH (10:53)
[2022-05-07] MEDS: PRENATAL VITAMINS W/ FOLIC ACID TABLET (FP) PO SCH (10:53)
[2022-05-07 21:53] VITALS: RESP 18
[2022-05-07] MEDS: THIAMINE HCL 100 MG TABLET (FP) PO SCH (22:34)
[2022-05-07] MEDS: MELATONIN 5 MG TABLETS PO SCH (22:34)
[2022-05-07] MEDS: IBUPROFEN 600 MG TABLET (FP) PO PRN (22:36)
[2022-05-08] MEDS: GABAPENTIN 100 MG CAPSULE PO SCH (05:54)
[2022-05-08 10:41] VITALS: BP 128/71; PULSE 64; TEMP 96.2
== END 2022-05-08 09:28 | disposition home or self-care (01) | DRG 897 ==
LOC: YASAS 22:04 → Y6N 05-03 00:54
PROVIDERS: ADMIT Surgery; ATTEND Surgery
PROC: HZ2ZZZZ Detoxification Services for Substance Abuse Treatment (ICD-10-PCS; principal; 2022-05-03)
DX: F11.23 Opioid dependence with withdrawal (principal); F14.20 Cocaine dependence, uncomplicated; F19.280 Other psychoactive substance dependence with psychoactive substance-induced anxiety disorder; F10.20 Alcohol dependence, uncomplicated; F17.210 Nicotine dependence, cigarettes, uncomplicated; F31.70 Bipolar disorder, currently in remission, most recent episode unspecified; F39 Unspecified mood [affective] disorder; R00.1 Bradycardia, unspecified; Z59.00 Homelessness unspecified; Z56.0 Unemployment, unspecified
CPT/HCPCS: 36415; 80053; 82962; 85027; 86780; 87811; 93005; 93010; C9803-CS; J0735; U0003; U0005